=== PATIENT | male | born 1945 | race Caucasian/White ===

== ENCOUNTER 2021-03-26 20:48 | Inpatient (IN) | payer MEDICARE, SELFPAY ==
--- NOTE | ~2021-03-26 | XR_ITS ---
EXAMINATION: XR retrograde pyelogram RT INDICATION: Left-sided stone extraction and right-sided retrograde TECHNIQUE: 45 intraoperative fluoroscopic images are submitted for review. Total fluoroscopic time wa s 17.0 seconds. COMPARISON: None available FINDINGS: Fluoroscopic images demonstrate retrograde opacification of a normal caliber right ureter a nd renal collecting system. There appears to be a wire inserted into the left ureter. IMPRESSION: 1. Please refer to procedure note for full details. Reviewed, dictated and finalized at location A.
[2021-03-26 20:45] VITALS: BP 161/89; PULSE 94; RESP 20; TEMP 36.7; O2SAT 99
--- NOTE | 2021-03-26 21:16 | PM.IMHP ---
H&P: HPI History of Present Illness Date/Time: 03/26/21 21:16 this is a 75-year-old male patient who has had no prior history of any kidney stones. The patient went to [facility] with complaints of left flank pain that started yesterday. The patient tried several remedies to help resolve the pain. The patient felt like he is bloated and that he needed have a bowel movement so he tried and a mi and that did not give him any relief. The patient stated that the pain got worse when he tried to lay down to go to sleep last night. The patient got into the hot tub which gave him some relief while he was in the hot tub. The patient was given morphine and Toradol in the emergency room at [place] and he felt relief from that as well. He was given IV fluids. The CT scan at [facility] was read by radiologist as 7 mm left distal ureteral calculus with associated mild left hydronephrosis and hydroureter. Bilateral nonobstructing nephrolithiasis. Moderate prostatic enlargement. Urinary bladder wall thickening may be due to cystitis versus artifactual appearance related to incomplete luminal distention. Postoperative changes of esophageal pull-through. Lower lumbar degenerative disc disease and facet arthropathy. No evidence of bowel obstruction, acute appendicitis, or other acute process in the abdomien or pelvis. Patient's H&H was 15.5 and 48.1. BUN 18 creatinine 2.52. I was given report from Harriet Oneil in the emergency room at [place]. The boiler house supervisor at [facility] had notify Dr. nicole who agreed to consult on the patient. The patient is being admitted for observation status on the date of service of 03/26/2021. Chief Complaint: Left flank pain Review of Systems Review of Systems: All systems reviewed & are unremarkable except as noted in HPI and below Constitutional: Constitutional: Reports as per HPI and Reports no additional constitutional complaints Eyes: Eyes: Reports as per HPI and Reports no additional eye complaints ENT: Reports system reviewed and no additional complaints, except as documented and Reports Normal hearing present Cardiovascular: Cardiovascular: Reports no additional cardiovascular complaints Respiratory: Respiratory: Reports no additional respiratory complaints and Reports no additional respiratory complaints Gastrointestinal: Gastrointestinal: Reports as per HPI and Reports no additional gastrointestinal complaints Musculoskeletal: Musculoskeletal: Reports no additional musculoskeletal complaints Integumentary/Breasts: Skin/Breast: Reports system reviewed and no additional complaints, except as docu and Reports as per HPI Neurologic: Reports system reviewed and no additional complaints, except as documented, Reports as per HPI and Reports Normal hearing present Psychiatric: Psychiatric: Reports no additional psychiatric complaints and Reports as per HPI Endocrine: Endocrine: Reports no additional endocrine complaints Hematologic/Lymphatic: Hematologic/Lymphatic: Reports no additional hematologic/lymphatic complaints Allergic/Immunologic: Allergic/Immunologic: Reports no additional allergic/immunologic complaints [facility] Past Medical History Medical History (Updated 03/26/21 @ 21:41 by Pam Salinas NP) Asthma Coronary artery thrombosis With thrombectomy History of esophageal cancer With surgery, chemo and radiation. History of pulmonary embolism Hyperlipidemia Hypertension Surgical History Surgical History (Updated 03/26/21 @ 21:29 by Pam Salinas NP) H/O bilateral cataract extraction H/O hernia repair History of gastric surgery Esophageal pull-through History of lung surgery To remove esophageal cancer Family History Family History (Updated 03/26/21 @ 21:30 by Pma Salinas NP) Father Alcoholism Social History Social History (Updated 03/26/21 @ 21:34 by Pam Salinas NP) Social History: The patient is . H
--- NOTE | 2021-03-26 21:18 | ADMGEN ---
This patient, Dhruv Santiago, was admitted to [facility] Surg Room 302-01. Patient/family oriented to hospital policies and general routines including ID bracelet, bed and alarms, visiting hours, pain management, procedures, bathroom and other care routines, personal items, smoking policy, room service/diet, and visiting hours. Information on how to activate the Rapid Response Team has been discussed. Patient/Family are encouraged to report perceived risks to care and to ask questions if they do not understand what they are told or what they should do.
[2021-03-26 21:40] VITALS: BMI 27.3
[2021-03-26 22:00] VITALS: BP 139/84; PULSE 74; RESP 20; TEMP 36.2; O2SAT 99
[2021-03-26] MEDS: HYDROcodone/acetaminophen (*CRX) 5-325 MG TABLET 1 TAB PO (22:04)
[2021-03-26 22:05] LABS: Anion Gap 8 mmol/L (8-16); Blood Urea Nitrogen 19 mg/dL (9-20); Calcium 9.2 mg/dL (8.4-10.2); Carbon Dioxide 24 mmol/L (22-30); Chloride 110 mmol/L (98-107); Estimated CRCL calculation 19 ml/min; Estimated Glomerular Filt Rate 21; Glucose 110 mg/dL (75-110); Potassium 3.8 mmol/L (3.4-5.0); Sodium 142 mmol/L (137-145)
[2021-03-26] MEDS: DEXTROSE 5%/0.9% SOD CHL 1,000 ML 100 ML IV CONT (22:05)
[2021-03-27] VITALS (14 sets, daily range): BP systolic 135–176; BP diastolic 85–105; PULSE 67–108; RESP 16–20; TEMP 36.1–37; O2SAT 94–100
[2021-03-27] MEDS: HYDROcodone/acetaminophen (*CRX) 5-325 MG TABLET 1 TAB PO ×2 (03:16→09:10)
[2021-03-27 03:50] LABS: Add Urine Microscopic? YES; Appearance Urine Clear (Clear); Bilirubin Urine Negative (Negative); Blood Urine 2+ (Negative); Color Urine Yellow (Yellow); Glucose Urine UA Negative (Negative); Ketones Urine Trace mg/dL (Negative); Leukocyte Esterase Ur Negative LEU/UL (Negative); Mucus Urine Rare /lpf; Nitrate Urine Negative (Negative); Protein Urine 2+ mg/dL (Negative); Squamous Epithelial Cell Urine Rare /hpf (Few); Urobilinogen Urine Negative mg/dL (<2.0); WBC Urine 0-3 /hpf
[2021-03-27 04:18] LABS: Specific Grav Ur 1.032 (1.001-1.035)
[2021-03-27] MEDS: MORPHINE SULFATE (*CRX) 2 MG/ML INJ IV PUSH (06:19)
[2021-03-27 06:35] LABS: Basophils Absolute Auto 0.1 K/mm3 (0.0-0.1); Basophils Percent Auto 0.5 % (0.2-1.2); Eosinophils Absolute Auto 0.1 K/mm3 (0-0.3); Eosinophils Percent Auto 1.4 % (0-4.4); Hematocrit 42.4 % (42.0-52.0); Hemoglobin 13.3 g/dL (14.0-18.0); Immature Granulocyte Absolute 0.03 K/mm3 (0.00-0.031); Immature Granulocyte Percent A 0.3 % (0-0.5); Lymphocytes Absolute Auto 1.11 K/mm3 (0.9-3.2); Lymphocytes Percent Auto 11.6 % (18.3-44.2); Mean Corpuscular HGB Conc 31.4 g/dl (32-36); Mean Corpuscular Hemoglobin 28.3 pg (26-34); Mean Corpuscular Volume 90.2 fl (80-100); Mean Platelet Volume 10.6 fl (7.4-10.4); Monocytes Absolute Auto 1.2 K/mm3 (0.1-0.6); Monocytes Percent Auto 12.2 % (2.6-8.5); Neutrophils Absolute Auto 7.1 K/mm3 (1.3-6.7); Platelet Count Result 204 k/mm3 (150-375); Red Cell Distribution Width 16.8 % (11.5-14.5); White Blood Count 9.6 K/mm3 (4.5-10.0)
[2021-03-27] MEDS: MORPHINE SULFATE (*CRX) 4 MG/ML INJ IV PUSH (06:53)
[2021-03-27] MEDS: DEXTROSE 5%/0.9% SOD CHL 1,000 ML 100 ML IV CONT (08:17)
--- NOTE | 2021-03-27 10:00 | WPDURCON ---
Assessment and Plan Assessment and plan (1) Left ureteral stone: Code(s): N20.1 - Calculus of ureter Status: Acute Assessment and Plan: Cystoscopy, left ureteroscopy with possible laser lithotripsy, stone extraction and possible stent placement. Urology Consult Note HPI Date Seen: 03/27/21 Requesting Physician: Enrico Brian MD Primary Care Provider: Angelo Schulz, MD Consult Narrative Narrative: Dhruv Santiago is a 75 year old male without prior significant urological history in without history of urolithiasis. He presented to the emergency department [facility] with a 36 hour history of intermittent, increasingly severe left flank pain radiated to his left lower quadrant. This was associated with nausea vomiting but no fevers chills or gross hematuria. Imaging there revealed a 7 mm partially obstructing left distal ureteral calculus. Review of Systems Cardiovascular: Cardiovascular: Denies chest pain, Denies lightheadedness, Denies palpitations and Denies dyspnea Respiratory: Respiratory: Denies dyspnea Gastrointestinal: Gastrointestinal: Reports abdominal pain, Denies diarrhea, Reports nausea and Reports vomiting Genitourinary: Genitourinary: Denies hematuria and Denies dysuria Endocrine: Endocrine: Denies palpitations PMFSH Past Medical History Medical History Asthma Coronary artery thrombosis With thrombectomy History of esophageal cancer With surgery, chemo and radiation. History of pulmonary embolism Hyperlipidemia Hypertension Surgical History Surgical History H/O bilateral cataract extraction H/O hernia repair History of gastric surgery Esophageal pull-through History of lung surgery To remove esophageal cancer Family History Family History Father Alcoholism Social History Social History Social History: The patient is . He has 2 children. Both of the sons are durable power district attorney for healthcare. Patient is a full code. The patient smoked for brief period time when he was younger. He no longer smokes. Social drinker. No marijuana or illicit drugs. The patient is retired from [employer]. Smoking status: Former smoker Smoking end date: 11/07/1959 Gender identity (if verbalized by the patient): Male Spiritual care concerns: No Meds Home Medications and Allergies Home Medications Medication Instructions Recorded Confirmed Type apixaban [Eliquis] 5 mg PO BID 03/27/21 03/27/21 History fluticasone propionate [Flovent 220 mcg INHALATION Q4H PRN 03/27/21 03/27/21 History HFA] lisinopril 20 mg PO DAILY 03/27/21 03/27/21 History salmeterol [Serevent Diskus] 50 mcg INHALATION Q4H PRN 03/27/21 03/27/21 History simvastatin 800 mg PO HS 03/27/21 03/27/21 History Allergies Allergy/AdvReac Type Severity Reaction Status Date / Time adhesive Allergy Intermediate Rash Verified 03/24/15 07:44 Vital Signs Vital Signs - 24 hr 03/26/21 20:45 03/26/21 22:00 03/27/21 00:00 Temperature 98.0 F 97.1 F L Pulse Rate 94 74 72 Respiratory Rate 20 20 Blood Pressure 161/89 H 139/84 Pulse Oximetry 99 99 03/27/21 04:00 03/27/21 06:00 03/27/21 08:00 Temperature 97.0 F L Pulse Rate 67 77 81 Respiratory Rate 20 Blood Pressure 135/87 Pulse Oximetry 99 Exam Const: General: no acute distress Resp: Effort & Inspection: normal respiratory effort GI: Inspection: non-distended GI Palp: No abdominal tenderness and No Guarding due to palpation present (GI) Auscultation: normal bowel sounds Results Labs CBC & Chem 7: 03/27/21 05:47 03/26/21 21:45 Labs: Short CBC 03/27/21 Range/Units 05:47 WBC 9.6 (4.5-10.0) K/mm3 Hgb 13.3 L (14.0-18.0) g/dL Hct
[2021-03-27] MEDS: KETOROLAC 15 MG/ML VIAL (*BKC) IV PUSH (12:04)
--- NOTE | 2021-03-27 13:42 | WPDANESEPPF ---
Anes - Initial Pre Proc Eval Procedure: Operation Date: 03/27/21 15:30 Proposed Procedures p Cystoscopy,Left Ureteroscopy,Left Retrograde Pyelogram,Left Stone Extraction,Possible Holmium Laser,Possible Left Stent Placement - Kan Bauman MD Date/Time: 03/27/21 13:42 Surgeon: Enrico Brian MD Pre Op Diagnosis: Obstructive Uropathy Patient Data Age: 75 Gender: M Height: 1.73 m Weight: 81.4 kg Last Vital Signs Temp 36.1 C L 03/27/21 06:00 Pulse 89 03/27/21 12:00 Resp 20 03/27/21 06:00 BP 135/87 03/27/21 06:00 Pulse Ox 99 03/27/21 06:00 Allergies Allergy/AdvReac Type Severity Reaction Status Date / Time adhesive Allergy Intermediate Rash Verified 03/24/15 07:44 Home Medications Medication Instructions Recorded Confirmed Type apixaban [Eliquis] 5 mg PO BID 03/27/21 03/27/21 History fluticasone propionate [Flovent 220 mcg INHALATION Q4H PRN 03/27/21 03/27/21 History HFA] lisinopril 20 mg PO DAILY 03/27/21 03/27/21 History salmeterol [Serevent Diskus] 50 mcg INHALATION Q4H PRN 03/27/21 03/27/21 History simvastatin 800 mg PO HS 03/27/21 03/27/21 History Laboratory Tests 03/26/21 03/27/21 03/27/21 21:45 03:17 05:47 WBC 9.6 K/mm3 K/mm3 (4.5-10.0) RBC 4.70 M/mm3 M/mm3 (4.6-6.20) Hgb 13.3 g/dL L g/dL (14.0-18.0) Hct 42.4 % % (42.0-52.0) MCV 90.2 fl fl (80-100) MCH 28.3 pg pg (26-34) MCHC 31.4 g/dl L g/dl (32-36) RDW 16.8 % H % (11.5-14.5) Plt Count 204 k/mm3 k/mm3 (150-375) MPV 10.6 fl H fl (7.4-10.4) Immature Gran % (Auto) 0.3 % % (0-0.5) Neut % (Auto) 74.0 % H % (45.5-73.1) Lymph % (Auto) 11.6 % L % (18.3-44.2) [place] % (Auto) 12.2 % H % (2.6-8.5) Eos % (Auto) 1.4 % % (0-4.4) Baso % (Auto) 0.5 % % (0.2-1.2) Lymph # (Auto) 1.11 K/mm3 K/mm3 (0.9-3.2) [place] # (Auto) 1.2 K/mm3 H K/mm3 (0.1-0.6) Eos # (Auto) 0.1 K/mm3 K/mm3 (0-0.3) Baso # (Auto) 0.1 K/mm3 K/mm3 (0.0-0.1) Abs Immat Gran (auto) 0.03 K/mm3 K/mm3 (0.00-0.031) Absolute Neuts (auto) 7.1 K/mm3 H K/mm3 (1.3-6.7) Absolute Nucleated RBC 0.0 K/mm3 K/mm3 (0.0-0.012) Nucleated RBC % 0.0 % % (0.0-0.2) Sodium 142 mmol/L mmol/L (137-145) Potassium 3.8 mmol/L mmol/L (3.4-5.0) Chloride 110 mmol/L H mmol/L (98-107) Carbon Dioxide 24 mmol/L mmol/L (22-30) Anion Gap 8 mmol/L mmol/L (8-16) BUN 19 mg/dL mg/dL (9-20) Creatinine 3.00 mg/dL H mg/dL (0.7-1.3) Estim Creat Clear Calc 19 ml/min ml/min Estimated GFR 21 L (59 - ) Glucose 110 mg/dL mg/dL (75-110) Calcium 9.2 mg/dL mg/dL (8.4-10.2) Urine Color Yellow (Yellow) Urine Appearance Clear (Clear) Urine pH 5.0 (5.0-9.0) Ur Specific [place] 1.032 (1.001-1.035) Urine Protein 2+ mg/dL H mg/dL (Negative) Urine Glucose (UA) Negative mg/dL mg/dL (Negative) Urine Ketones Trace mg/dL mg/dL (Negative) Ur Blood (Man) 2+ H (Negative) Urine Nitrate Negative (Negative) Urine Bilirubin Negative (Negative) Urine Urobilinogen Negative mg/dL mg/dL (<2.0) Leukocyte Esterase Rfl Negative KANDACE/UL KANDACE/UL (Negative) Urine RBC 3-5 /hpf H /hpf (0-2) Urine WBC 0-3 /hpf /hpf Ur Squamous Epith Cells Rare /hpf /hpf (Few) Urine Mucus Rare /lpf /lpf Patient hx anesthesia problems: none Family hx anesthesia problems: none PMFSH Past Medical History Medical History Asthma Coronary artery thrombosis With thrombectomy History of esophageal cancer With surge
--- NOTE | 2021-03-27 14:35 | PC.NURSE ---
To OR per wheelchair @ 1555, IV #20 RT AC.
--- NOTE | 2021-03-27 14:55 | PM.IMPN ---
Progress Note: A&P Assessment and Plan (1) Nephrolithiasis: Code(s): N20.0 - Calculus of kidney Status: Acute Assessment and Plan: Urology has been consulted. s/op cystoscopy and stone extraction (2) Obstructed, uropathy: Code(s): N13.9 - Obstructive and reflux uropathy, unspecified Status: Acute Assessment and Plan: Continue with IV fluids. Urology has been consulted. will monitor renal function (3) Hyperlipidemia: Code(s): E78.5 - Hyperlipidemia, unspecified Status: Chronic Assessment and Plan: Continue with home medication (4) UTI (urinary tract infection): Code(s): N39.0 - Urinary tract infection, site not specified Status: Acute Assessment and Plan: Urine and blood cultures are pending. Continue with Rocephin. (5) Acute kidney injury: Code(s): N17.9 - Acute kidney failure, unspecified Status: Acute Assessment and Plan: Continue with IV fluids. Most likely due to the nephrolithiasis and the obstructive uropathy. The patient's creatinine is 2 .52. will rehcekc her creatinine to ensure resolutin. (6) Hypertension: Code(s): I10 - Essential (primary) hypertension Status: Chronic Assessment and Plan: Hold lisinopril for now will do p.r.n. hydralazine. lisinopril will be hled until renal function recovers (7) Asthma: Code(s): J45.909 - Unspecified asthma, uncomplicated Status: Chronic Assessment and Plan: Continue with inhalers. (8) History of pulmonary embolism: Code(s): Z86.711 - Personal history of pulmonary embolism Status: Chronic Assessment and Plan: resume eliquis (9) Left ureteral stone: Code(s): N20.1 - Calculus of ureter Status: Acute Subjective Date/time seen: 03/27/21 14:55 seen in postop recovery. he is feeling much beter. the pain has resolved. he denies any fever, chlls, sob, chest pain, abdominal pain. Review of Systems Review of Systems: Narrative: - CONSTITUTIONAL: Denies weight loss, fever and chills. - HEENT: Denies changes in vision and hearing - RESPIRATORY: Denies SOB and cough. - CV: Denies palpitations and CP. - GI: reports abdominal pain, denies nausea, vomiting and diarrhea. - : Denies dysuria and urinary frequency. - MSK: Denies myalgia and joint pain. - SKIN: Denies rash and pruritus. - NEUROLOGICAL: Denies headache and syncope. - PSYCHIATRIC: Denies recent changes in mood. Denies anxiety and depression. All systems reviewed & are unremarkable except as noted in HPI and below Exam Narrative: Exam Narrative: GENERAL: The patient is well developed, not in acute distress HEENT: Nonicteric sclerae, PERRLA, EOMI. Oropharynx clear. Moist mucous membranes. Conjunctivae appear well perfused. CHEST: Chest wall is nontender. HEART: Regular rate and rhythm without murmur, rubs, or gallops LUNGS: Clear to auscultation bilaterally. no respiratory distress ABDOMEN: Soft, positive bowel sounds, non-tender, no organomegaly. SKIN: No rash, no excessive bruising, petechiae, or purpura. NEUROLOGIC: Cranial nerves II-XII intact, alert and oriented x 3, no gross motor deficits EXTREMITIES: no edema, cyanosis or clubbing Objective Data Vital Signs Vital Signs: Vital Signs - 24 hr 03/26/21 20:45 03/26/21 22:00 03/27/21 00:00 Temperature 98.0 F 97.1 F L Pulse Rate 94 74 72 Respiratory Rate 20 20 Blood Pressure 161/89 H 139/84 Pulse Oximetry 99 99 03/27/21 04:00 03/27/21 06:00 03/27/21 08:00 Temperature 97.0 F L Pulse Rate 67 77 81 Respiratory Rate 20 Blood Pressure 135/87 Pulse Oximetry 99 03/27/21 12:00 Temperature Pulse Rate 89 Respiratory Rate Blood Pressure Pulse Oximetry Intake/Output Intake/Output: Intake & Output 03/24/21 03/25/21 03/26/21 03/27/21 23:59 23:59 23:59 23:59 Intake Total 50 1400 Output Total 300 Balance 50 1100 Meds/Results Medicat
--- NOTE | 2021-03-27 15:04 | SUR.PREOP ---
dr brown aware of bp 157/105.
[2021-03-27] MEDS: LACTATED RINGERS 1,000 ML 30 ML IV CONT (15:07)
--- NOTE | 2021-03-27 16:01 | PC.NURSE ---
Tam Santiago (son) [phone]
--- NOTE | 2021-03-27 16:12 | WPDHPUPDATE1 ---
History and Physical Update Update Date/Time: 03/27/21 16:12 History and Physical has been reviewed, including an updated exam of the patient. There are NO changes in the patient's condition. Risks, benefits, and alternatives have been discussed and questions answered. Patient agrees to proceed with procedure.
[2021-03-27] MEDS: LIDOCAINE HCL 2% GEL UROJET 10 ML PKG MUCOUS MEM (17:12)
--- NOTE | 2021-03-27 17:26 | P.OP_ITS ---
Procedure Note - Detailed Date of procedure: 03/27/21 Pre-op diagnosis: Left distal ureteral calculus Post-op diagnosis: same Procedure performed: Cystoscopy, left ureteroscopy with stone extraction, right retrograde pyelography Description of procedure: The patient was brought to the operative suite where he is prepped and draped in a routine sterile fashion while in the dorsal lithotomy position after the uneventful induction of a general LMA anesthetic. A 19F rigid cystoscope was placed in the bladder. There are no urethral strictures. His prostatic urethra measures, approximately, 2.0cm with small median lobe enlargement. The bladder mucosa was endoscopically normal without hyperemia or neoplasm. There was a single, orthotopic ureteral orifice bilaterally. A 0.035 glidewire was advanced into the renal pelvis under fluoro scopy. The distal ureter was dilated with an 8F/10F ureteral dilator. Ureteroscopy was undertaken with a short, tapered, semi-rigid ureteroscope and the stone was extracted with ease using a 1.9F Escape disposable stone basket. Due to the ease of this manipulation I opted not to place a ureteral stent. patient was transferred from another hospital where, reportedly, he was given a verbal report that he had a right ureteral stone. On his intraoperative fluoroscopy there were some calcifications in his right hemipelvis so I opted to do a right retrograde pyelogram. This was done with the rigid ureteral scope position to the right ureteral orifice. There are no stones in his right ureter that her identifiable. These calcifications are well outside the ureter. There are no filling defects, points of obstruction or other identifiable pathology in the right ureter collecting system. The patient's bladder was emptied and was taken to the recovery room having tolerated this procedure well. Anesthesia: GLMA Surgeon: Kan Bauman MD Estimated blood loss (mL): 0 Drains: No Packing: No Pathology: yes Complications: No immediate complications Condition: stable Disposition: PACU
--- NOTE | 2021-03-27 17:39 | SUR.PHASEI ---
1728; PT INTO PACU PER STRETCHER. AWAKE AND ALERT. COUGHING, HACKING. PT ASKED TO SIT UPRIGHT. DENIES PAIN. PT HAS AUDIBLE EXP WHEEZES. DR MARTINEZ AT BEDSIDE. 1735; ORDERING ALBUTEROL TREATMENT. RESP THERAPIST NOTIFIED.
[2021-03-27] MEDS: ALBUTEROL SULFATE NEB 2.5 MG/3 ML INH INHALATION (17:45)
--- NOTE | 2021-03-27 17:46 | SUR.PHASEI ---
PT GETTING ALBUTEROL TREATMENT
--- NOTE | 2021-03-27 17:54 | SUR.PHASEI ---
BP 180/110. HR 90'S NSR. DR MARTINEZ NOTIFIED. PT STATES HE HASNT HAD HIS LISINOPRIL IN 2 DAYS. LABETOLOL 5MG IV ORDERED
[2021-03-27] MEDS: LABETALOL HCL INJ 100 MG/20 ML VIAL IV PUSH (17:57)
--- NOTE | 2021-03-27 18:17 | SUR.PHASEI ---
PT AWAKE AND ALERT. BP IMPROVED. 150'S/90'S. HR 83. HOSPITALIST AT BEDSIDE. REPORT FAXED TO FLOOR
--- NOTE | 2021-03-27 18:28 | SUR.PHASEI ---
DR MARTINEZ NOTIFIED OF BP 150'S/90'S
[2021-03-27 20:17] LABS: Anion Gap 5 mmol/L (8-16); Blood Urea Nitrogen 20 mg/dL (9-20); Calcium 8.3 mg/dL (8.4-10.2); Carbon Dioxide 25 mmol/L (22-30); Chloride 110 mmol/L (98-107); Estimated CRCL calculation 20 ml/min; Estimated Glomerular Filt Rate 21; Glucose 117 mg/dL (75-110); Potassium 3.3 mmol/L (3.4-5.0); Sodium 140 mmol/L (137-145)
[2021-03-27] MEDS: MELATONIN 3 MG TABLET PO (21:40)
[2021-03-27] MEDS: APIXABAN 5 MG TABLET PO (21:40)
[2021-03-28] MEDS: SIMVASTATIN 20 MG TABLET 80 MG PO ×2 (00:04→20:41)
[2021-03-28 06:00] VITALS: BP 161/95; PULSE 96; RESP 20; TEMP 37.3; O2SAT 97
[2021-03-28] MEDS: HYDROcodone/acetaminophen (*CRX) 5-325 MG TABLET 1 TAB PO (06:18)
[2021-03-28 08:00] VITALS: PULSE 96; RESP 20; O2SAT 97
[2021-03-28 08:04] LABS: Basophils Absolute Auto 0.1 K/mm3 (0.0-0.1); Basophils Percent Auto 0.6 % (0.2-1.2); Eosinophils Absolute Auto 0.1 K/mm3 (0-0.3); Eosinophils Percent Auto 0.5 % (0-4.4); Hemoglobin 13.8 g/dL (14.0-18.0); Immature Granulocyte Absolute 0.04 K/mm3 (0.00-0.031); Immature Granulocyte Percent A 0.3 % (0-0.5); Lymphocytes Absolute Auto 0.92 K/mm3 (0.9-3.2); Lymphocytes Percent Auto 7.8 % (18.3-44.2); Mean Corpuscular HGB Conc 31.4 g/dl (32-36); Mean Corpuscular Hemoglobin 27.8 pg (26-34); Mean Corpuscular Volume 88.7 fl (80-100); Mean Platelet Volume 10.7 fl (7.4-10.4); Monocytes Absolute Auto 1.5 K/mm3 (0.1-0.6); Monocytes Percent Auto 12.5 % (2.6-8.5); Neutrophils Absolute Auto 9.2 K/mm3 (1.3-6.7); Neutrophils Percent Auto 78.3 % (45.5-73.1); Platelet Count Result 199 k/mm3 (150-375); Red Blood Count 4.96 M/mm3 (4.6-6.20); Red Cell Distribution Width 16.8 % (11.5-14.5); White Blood Count 11.8 K/mm3 (4.5-10.0)
[2021-03-28 08:21] LABS: Anion Gap 5 mmol/L (8-16); Blood Urea Nitrogen 20 mg/dL (9-20); Calcium 8.2 mg/dL (8.4-10.2); Carbon Dioxide 23 mmol/L (22-30); Chloride 108 mmol/L (98-107); Estimated CRCL calculation 19 ml/min; Estimated Glomerular Filt Rate 20; Glucose 109 mg/dL (75-110); Potassium 3.4 mmol/L (3.4-5.0); Sodium 136 mmol/L (137-145)
[2021-03-28] MEDS: APIXABAN 5 MG TABLET PO ×2 (08:42→17:30)
--- NOTE | 2021-03-28 10:41 | PM.IMPN ---
Progress Note: A&P Assessment and Plan (1) Nephrolithiasis: Code(s): N20.0 - Calculus of kidney Status: Acute Assessment and Plan: Urology has been consulted. s/op cystoscopy and stone extraction Continue with IV fluid (2) Obstructed, uropathy: Code(s): N13.9 - Obstructive and reflux uropathy, unspecified Status: Acute Assessment and Plan: Continue with IV fluids. Urology has been consulted. will monitor renal function Monitor creatinine. (3) Hyperlipidemia: Code(s): E78.5 - Hyperlipidemia, unspecified Status: Chronic Assessment and Plan: Continue with home medication (4) UTI (urinary tract infection): Code(s): N39.0 - Urinary tract infection, site not specified Status: Acute Assessment and Plan: Urine and blood cultures are pending. Continue with Rocephin. (5) Acute kidney injury: Code(s): N17.9 - Acute kidney failure, unspecified Status: Acute Assessment and Plan: Continue with IV fluids. Most likely due to the nephrolithiasis and the obstructive uropathy. The patient's creatinine is 2 .52. will rehcekc her creatinine to ensure resolutin. (6) Hypertension: Code(s): I10 - Essential (primary) hypertension Status: Chronic Assessment and Plan: Hold lisinopril for now will do p.r.n. hydralazine. lisinopril will be hled until renal function recovers (7) Asthma: Code(s): J45.909 - Unspecified asthma, uncomplicated Status: Chronic Assessment and Plan: Continue with inhalers. (8) History of pulmonary embolism: Code(s): Z86.711 - Personal history of pulmonary embolism Status: Chronic Assessment and Plan: resume eliquis Additional Plan This is a 75-year-old male patient who has had no prior history of any kidney stones. The patient went to [facility] with complaints of left flank pain that started yesterday. The patient tried several remedies to help resolve the pain. The patient felt like he is bloated and that he needed have a bowel movement so he tried and a mi and that did not give him any relief. The patient stated that the pain got worse when he tried to lay down to go to sleep last night. The patient got into the hot tub which gave him some relief while he was in the hot tub. The patient was given morphine and Toradol in the emergency room at [facility] and he felt relief from that as well. He was given IV fluids. The CT scan at [facility] was read by radiologist as 7 mm left distal ureteral calculus with associated mild left hydronephrosis and hydroureter. Bilateral nonobstructing nephrolithiasis. Moderate prostatic enlargement. Urinary bladder wall thickening may be due to cystitis versus artifactual appearance related to incomplete luminal distention. Postoperative changes of esophageal pull-through. Lower lumbar degenerative disc disease and facet arthropathy. No evidence of bowel obstruction, acute appendicitis, or other acute process in the abdomien or pelvis. Patient's H&H was 15.5 and 48.1. BUN 18 creatinine 2.52. I was given report from Harriet Oneil in the emergency room at [facility]. The warehouse distribution manager at [facility] had notify Dr. nicole who agreed to consult on the patient. The patient is being admitted for observation status on the date of service of 03/26/2021. 03/28:-will continue with current plan of care and treatment. Case was discussed with Urology. Will repeat creatinine in the morning and continue with antibiotics and IV fluid present. Subjective Date/time seen: 03/28/21 10:41 Patient was seen during the morning rounds today. Status post stone removal. Feeling much better. No shortness of breath or chest pain. No abdominal pain, no nausea, no vomiting. Mood stable. Review of Systems Review of Systems: All systems reviewed & are unremarkable except as noted in HPI and below Constitutional:
--- NOTE | 2021-03-28 10:53 | WPDUROPN2 ---
Progress Note: A&P Assessment and Plan (1) Left ureteral stone: Code(s): N20.1 - Calculus of ureter Status: Acute Assessment and Plan: s/p URS stone analysis pending (2) Acute kidney injury: Code(s): N17.9 - Acute kidney failure, unspecified Status: Acute Assessment and Plan: Cr 3.0 unknown baseline pt state he has kidney disease trend serial Cr and i/O Subjective Subjective Date/Time Seen: 03/28/21 10:53 Doing well, NAOE. no clots, no pain. No fevers/chills/or voiding complaints. Exam Const: General: cooperative, healthy appearing and comfortable HENMT: Head: normocephalic and atraumatic Resp: Effort & Inspection: normal respiratory effort and able to speak in complete sentences Cardio: Rate: regular rate Rhythm: regular rhythm : General: Yes no CVA tenderness Skin: General skin exam: normal color Neuro: General: oriented to person, oriented to place and oriented to time Extrem: General: normal to inspection, full ROM and capillary refill normal Objective Data Vital Signs Vital Signs: Vital Signs - 24 hr 03/27/21 12:00 03/27/21 14:00 03/27/21 14:40 Temperature 36.4 C 37.0 C Pulse Rate 89 86 108 H Respiratory Rate 16 16 Blood Pressure 137/85 165/105 H Pulse Oximetry 98 97 03/27/21 17:28 03/27/21 17:45 03/27/21 17:55 Temperature 36.3 C L Pulse Rate 96 91 93 Respiratory Rate 16 20 20 Blood Pressure 176/103 H 171/100 H Pulse Oximetry 95 100 03/27/21 17:57 03/27/21 18:00 03/27/21 18:16 Temperature Pulse Rate 96 84 82 Respiratory Rate 18 20 Blood Pressure 170/90 H 153/96 H Pulse Oximetry 95 94 03/27/21 22:00 03/28/21 06:00 Temperature 36.6 C 37.3 C Pulse Rate 98 96 Respiratory Rate 16 20 Blood Pressure 155/90 H 161/95 H Pulse Oximetry 96 97 Intake/Output Intake/Output: Intake & Output 03/25/21 03/26/21 03/27/21 03/28/21 23:59 23:59 23:59 23:59 Intake Total 50 4650 820 Output Total 300 400 Balance 50 4350 420 Meds/Results Medications: Active Medications Generic Name Dose Route Start Last Admin Trade Name Freq PRN Reason Stop Dose Admin Hydrocodone Bitart/Acetaminophen 1 tab 03/26/21 21:20 03/28/21 06:18 Hydrocodone/Acetaminophen (*Crx) 5-325 Mg Tablet PO 1 tab Q4H PRN Administration Pain Rated 4-6 Apixaban 5 mg 03/27/21 19:20 03/28/21 08:42 Apixaban 5 Mg Tablet PO 5 mg BID FABBY Administration Fentanyl Citrate 25 mcg 03/27/21 17:33 Fentanyl Citrate Inj (*Crx) 100 Mcg/2 Ml Vial IV PUSH Q2M PRN Pain Fluticasone Propionate 2 puff 03/27/21 14:57 Fluticasone Prop 220 Mcg (*Sp) 12 Gm Inhaler INHALATION DAILY PRN Shortness Of Breath Hydralazine HCl 10 mg 03/26/21 21:43 Hydralazine Hcl 20 Mg/Ml Vial IV PUSH Q8H PRN Blood Pressure - High Dextrose/Sodium Chloride 1,000 mls @ 100 mls/hr 03/26/21 21:10 03/28/21 06:12 Dextrose 5% Sodium Chloride 0.9% IV CONT Not Given .Q10H FABBY Ceftriaxone Sodium/Dextrose 1 gm in 50 mls @ 100 mls/hr 03/26/21 22:00 03/27/21 22:32 Rocephin 1 Gm/D5w 50 Ml IVPB Infused Q24H FABBY Infusion Lactated Ringer's 1,000 mls @ 30 mls/hr 03/27/21 13:45 03/27/21 18:13 Lr - Lactated Ringers Iv IV CONT Infused .Q24H FABBY Infusion Lactated Ringer's 1,000 mls @ 30 mls/hr 03/27/21 13:45 03/27/21 21:36 Lr - Lactated Ringers Iv IV CONT Not Given .Q24H FABBY Melatonin 3 mg 03/27/21 21:17 03/27/21 21:40 Melatonin 3 Mg Tablet PO 3 mg HS PRN Administration Sleep Morphine Sulfate 4 mg 03/27/21 06:46 03/27/21 06:53 Morphine Sulfate (*Crx) 4 Mg/Ml Inj IV PUSH 4 mg Q4H PRN Administration Pain Rated 7-10 Ondansetron HCl 4 mg 03/26/21 21:10 Ondansetron Inj 4 Mg/2 Ml Vial IV PUSH Q6H PRN Nausea And Vomiting Ondansetron HCl 4 mg 03/27/21 13:42 Ondansetron Inj 4 Mg/2 Ml Vial IV PUSH ONCE PRN Nausea Ondansetron HCl 4 mg 0
--- NOTE | 2021-03-28 12:23 | WPDANESPN ---
Anes - Prog Note Post-Op Date/Time: 03/28/21 12:23 Cardiovascular status: normal Respiratory status: normal Airway patency: baseline Mental status: baseline Post-Op hydration status: normal Vital Signs: Last Vital Signs Temp 37.3 C 03/28/21 06:00 Pulse 96 03/28/21 08:00 Resp 20 03/28/21 08:00 BP 161/95 H 03/28/21 06:00 Pulse Ox 97 03/28/21 08:00 Pain Score (VAS): 0 I/O: Intake & Output 03/27/21 03/28/21 03/28/21 23:59 07:59 15:59 Intake Total 3250 500 320 Output Total 400 Balance 3250 100 320 Laboratory Tests 03/28/21 07:10 03/28/21 07:10 03/27/21 03/28/21 03/28/21 19:47 07:10 07:10 WBC 11.8 H RBC 4.96 Hgb 13.8 L Hct 44.0 MCV 88.7 MCH 27.8 MCHC 31.4 L RDW 16.8 H Plt Count 199 MPV 10.7 H Immature Gran % (Auto) 0.3 Neut % (Auto) 78.3 H Lymph % (Auto) 7.8 L [place] % (Auto) 12.5 H Eos % (Auto) 0.5 Baso % (Auto) 0.6 Lymph # (Auto) 0.92 [place] # (Auto) 1.5 H Eos # (Auto) 0.1 Baso # (Auto) 0.1 Abs Immat Gran (auto) 0.04 H Absolute Neuts (auto) 9.2 H Absolute Nucleated RBC 0.0 Nucleated RBC % 0.0 Sodium 140 136 L Potassium 3.3 L 3.4 Chloride 110 H 108 H Carbon Dioxide 25 23 Anion Gap 5 L 5 L BUN 20 20 Creatinine 2.90 H 3.10 H Estim Creat Clear Calc 20 19 Estimated GFR 21 L 20 L Glucose 117 H 109 Calcium 8.3 L 8.2 L Microbiology 03/26/21 21:45 Blood Blood Culture - Preliminary 03/26/21 21:45 Blood Blood Culture - Preliminary Post-procedural complaints: none Patient Feedback: Patient satisfied with anesthetic care.
[2021-03-28 14:00] VITALS: BP 150/92; PULSE 97; RESP 16; TEMP 37.6; O2SAT 97
[2021-03-28] MEDS: DOCUSATE SODIUM 100 MG CAPSULE PO (17:29)
[2021-03-28] MEDS: SIMETHICONE 80 MG TAB.CHEW PO (20:42)
[2021-03-28] MEDS: ACETAMINOPHEN 325 MG TABLET 650 MG PO (20:42)
[2021-03-28] MEDS: MELATONIN 3 MG TABLET PO (21:39)
[2021-03-28] MEDS: polyethylene glycoL 3350 17 GM POWD.PACK PO (21:39)
[2021-03-28 22:06] VITALS: BP 154/97; PULSE 91; RESP 16; TEMP 37.2; O2SAT 96
[2021-03-28] MEDS: DEXTROSE 5%/0.9% SOD CHL 1,000 ML 100 ML IV CONT (22:07)
[2021-03-29] MEDS: DEXTROSE 5%/0.9% SOD CHL 1,000 ML 100 ML IV CONT (02:44)
[2021-03-29 06:00] VITALS: BP 154/90; PULSE 76; RESP 16; TEMP 36.6; O2SAT 99
[2021-03-29 06:19] LABS: Hematocrit 40.7 % (42.0-52.0); Hemoglobin 12.8 g/dL (14.0-18.0); Mean Corpuscular HGB Conc 31.4 g/dl (32-36); Mean Corpuscular Hemoglobin 27.8 pg (26-34); Mean Corpuscular Volume 88.5 fl (80-100); Mean Platelet Volume 10.7 fl (7.4-10.4); Platelet Count Result 165 k/mm3 (150-375); Red Cell Distribution Width 16.3 % (11.5-14.5); White Blood Count 7.3 K/mm3 (4.5-10.0)
[2021-03-29] MEDS: ACETAMINOPHEN 325 MG TABLET 650 MG PO ×2 (06:32→10:23)
[2021-03-29 06:37] LABS: Anion Gap 3 mmol/L (8-16); Blood Urea Nitrogen 18 mg/dL (9-20); Carbon Dioxide 26 mmol/L (22-30); Chloride 109 mmol/L (98-107); Estimated CRCL calculation 23 ml/min; Estimated Glomerular Filt Rate 25; Glucose 109 mg/dL (75-110); Potassium 3.3 mmol/L (3.4-5.0); Sodium 138 mmol/L (137-145)
[2021-03-29] MEDS: APIXABAN 5 MG TABLET PO (08:22)
[2021-03-29] MEDS: DOCUSATE SODIUM 100 MG CAPSULE PO (08:22)
--- NOTE | 2021-03-29 09:46 | WPDUROPN2 ---
Progress Note: A&P Assessment and Plan (1) Left ureteral stone: Code(s): N20.1 - Calculus of ureter Status: Acute Assessment and Plan: s/p ureteroscopy stone analysi spending ok to dc with followup with Dr Bauman pt will need outpt renal U/S and kub in few weeks (2) Nephrolithiasis: Code(s): N20.0 - Calculus of kidney Status: Acute (3) Acute kidney injury: Code(s): N17.9 - Acute kidney failure, unspecified Status: Acute Assessment and Plan: Cr improved. f/u with PCP Subjective Subjective Date/Time Seen: 03/29/21 09:46 feeling better, no gross hematuria or dysuria. no abdominal pain or back pain. urine clearing, wants to go home Review of Systems Review of Systems: All systems reviewed & are unremarkable except as noted in HPI and below Exam Const: General: cooperative, healthy appearing, comfortable and no acute distress HENMT: Head: normal to inspection, normocephalic and atraumatic Ears: hearing grossly normal bilaterally Eyes: General: appearance normal, both eyes and all related structures Chest: Chest palpation & inspection: normal inspection of the chest Resp: Effort & Inspection: normal respiratory effort, able to speak in complete sentences and no audible wheezes GI: Inspection: normal to inspection GI Palp: No abdominal tenderness : General: Yes no CVA tenderness Skin: General skin exam: normal color and no rashes or lesions noted Neuro: General: oriented to person, oriented to place, oriented to time and patient oriented x3 Extrem: General: normal to inspection, no clubbing, cyanosis or edema and no calf tenderness Objective Data Vital Signs Vital Signs: Vital Signs - 24 hr 03/28/21 14:00 03/28/21 22:06 03/29/21 06:00 Temperature 37.6 C 37.2 C 36.6 C Pulse Rate 97 91 76 Respiratory Rate 16 16 16 Blood Pressure 150/92 H 154/97 H 154/90 H Pulse Oximetry 97 96 99 Intake/Output Intake/Output: Intake & Output 03/26/21 03/27/21 03/28/21 03/29/21 23:59 23:59 23:59 23:59 Intake Total 50 4650 3040 1450 Output Total 378 917 1435 Balance 50 4350 2065 0 Meds/Results Medications: Active Medications Generic Name Dose Route Start Last Admin Trade Name Freq PRN Reason Stop Dose Admin Acetaminophen 650 mg 03/28/21 20:02 03/29/21 06:32 Acetaminophen 325 Mg Tablet PO 650 mg Q4H PRN Administration Mild Pain (1-3) or Fever Hydrocodone Bitart/Acetaminophen 1 tab 03/26/21 21:20 03/28/21 06:18 Hydrocodone/Acetaminophen (*Crx) 5-325 Mg Tablet PO 1 tab Q4H PRN Administration Pain Rated 4-6 Apixaban 5 mg 03/27/21 19:20 03/29/21 08:22 Apixaban 5 Mg Tablet PO 5 mg BID FABBY Administration Docusate Sodium 100 mg 03/28/21 17:00 03/29/21 08:22 Docusate Sodium 100 Mg Capsule PO 100 mg DAILY FABBY Administration Fentanyl Citrate 25 mcg 03/27/21 17:33 Fentanyl Citrate Inj (*Crx) 100 Mcg/2 Ml Vial IV PUSH Q2M PRN Pain Fluticasone Propionate 2 puff 03/27/21 14:57 Fluticasone Prop 220 Mcg (*Sp) 12 Gm Inhaler INHALATION DAILY PRN Shortness Of Breath Hydralazine HCl 10 mg 03/26/21 21:43 Hydralazine Hcl 20 Mg/Ml Vial IV PUSH Q8H PRN Blood Pressure - High Dextrose/Sodium Chloride 1,000 mls @ 100 mls/hr 03/26/21 21:10 03/29/21 02:44 Dextrose 5% Sodium Chloride 0.9% IV CONT 100 mls/hr .Q10H FABBY Administration Ceftriaxone Sodium/Dextrose 1 gm in 50 mls @ 100 mls/hr 03/26/21 22:00 03/28/21 21:59 Rocephin 1 Gm/D5w 50 Ml IVPB Infused Q24H FABBY Infusion Melatonin 3 mg 03/27/21 21:17 03/28/21 21:39 Melatonin 3 Mg Tablet PO 3 mg HS PRN Administration Sleep Morphine Sulfate 4 mg 03/27/21 06:46 03/27/21 06:53 Morphine Sulfate (*Crx) 4 Mg/Ml Inj IV PUSH 4 mg Q4H PRN Administration Pain Rated 7-10 Ondansetron HCl 4 mg 03/27/21 17:33 Ondansetron Inj 4 Mg/2 Ml Vial IV PUSH ONCE PRN Nausea
--- NOTE | 2021-03-29 11:12 | PM.DS ---
DS: Admitting Diagnosis Admitting Diagnosis Admitting Diagnosis: Nephrolith has DS: Discharge Diagnosis Discharge Diagnosis (1) Nephrolithiasis: Code(s): N20.0 - Calculus of kidney Status: Acute Assessment and Plan: Urology has been consulted. s/op cystoscopy and stone extraction Continue with IV fluid (2) Obstructed, uropathy: Code(s): N13.9 - Obstructive and reflux uropathy, unspecified Status: Acute Assessment and Plan: Continue with IV fluids. Urology has been consulted. will monitor renal function Monitor creatinine. (3) Hyperlipidemia: Code(s): E78.5 - Hyperlipidemia, unspecified Status: Chronic Assessment and Plan: Continue with home medication (4) UTI (urinary tract infection): Code(s): N39.0 - Urinary tract infection, site not specified Status: Acute Assessment and Plan: Urine and blood cultures are pending. Continue with Rocephin. (5) Acute kidney injury: Code(s): N17.9 - Acute kidney failure, unspecified Status: Acute Assessment and Plan: Continue with IV fluids. Most likely due to the nephrolithiasis and the obstructive uropathy. The patient's creatinine is 2 .52. will rehcekc her creatinine to ensure resolutin. (6) Hypertension: Code(s): I10 - Essential (primary) hypertension Status: Chronic Assessment and Plan: Hold lisinopril for now will do p.r.n. hydralazine. lisinopril will be hled until renal function recovers (7) Asthma: Code(s): J45.909 - Unspecified asthma, uncomplicated Status: Chronic Assessment and Plan: Continue with inhalers. (8) History of pulmonary embolism: Code(s): Z86.711 - Personal history of pulmonary embolism Status: Chronic Assessment and Plan: resume eliquis DS: Summary Hospital Course Reason for hospitalization: Nephrolithiasis Hospital Course: 75 doing so will was admitted complained of having kidney pain. Patient was found to have nephrolithiasis. Urology was consulted and procedure was performed to relieve the obstruction. Patient creatinine initially was high that is trending down now. Patient was also given antibiotics for possible UTI. Patient was continued on his home medication for pulmonary embolism. Today patient is feeling better so patient discharged home in stable condition. Will follow-up schedule an outpatient. Patient potassium is replace and monitor as an outpatient next week. Time spent discussing smoking cessation with patient: 3 to 10 minutes Status at Discharge Cognitive/behavioral status at discharge: Stable Functional status at discharge: independent ambulation Overall status at discharge: patient is back to baseline Time Spent with Patient Time attestation: Total time spent providing and/or coordinating discharge services: Time spent: Less than 30 minutes Exam Narrative: Exam Narrative: GENERAL: The patient is well developed, not in acute distress HEENT: Nonicteric sclerae, PERRLA, EOMI. Oropharynx clear. Moist mucous membranes. Conjunctivae appear well perfused. CHEST: Chest wall is nontender. HEART: Regular rate and rhythm without murmur, rubs, or gallops LUNGS: Clear to auscultation bilaterally. no respiratory distress ABDOMEN: Soft, positive bowel sounds, non-tender, no organomegaly. SKIN: No rash, no excessive bruising, petechiae, or purpura. NEUROLOGIC: Cranial nerves II-XII intact, alert and oriented x 3, no gross motor deficits EXTREMITIES: no edema, cyanosis or clubbing Const: General: cooperative, healthy appearing, comfortable, no acute distress, well developed, alert, awake and Physically active Nutritional Appearance: average body habitus and well nourished Orientation/consciousness: oriented to person, oriented to place, oriented to time and patient oriented x3 Limitations: no limitations HENMT: Head: normal to inspection, No palpable skull fracture present, normocephalic and atr
--- NOTE | 2021-03-29 11:49 | PC.NURSE ---
Pt is being discharged at this time. Pt has had IV removed, and discharge paperwork has been reviewed. Pt and his son both exhibited good understanding of discharge instructions. Pt was given a written script for [place] 5. Pt is being assisted down to the front door, in a wheelchair by staff.
== END 2021-03-29 11:50 | disposition home or self-care (01) | DRG 669 ==
PROVIDERS: Internal Medicine; Nurse Practitioner; Urology; Admitting Provider Family Medicine; PCP Internal Medicine; Visit Provider Internal Medicine
PROC: 0TC78ZZ Extirpation of Matter from Left Ureter, Via Natural or Artificial Opening Endoscopic (ICD-10-PCS; CPT 52352; principal; 2021-03-27 15:30)
DX: N20.2 Calculus of kidney with calculus of ureter (principal); N17.9 Acute kidney failure, unspecified; N39.0 Urinary tract infection, site not specified; E78.5 Hyperlipidemia, unspecified; I10 Essential (primary) hypertension; Z86.711 Personal history of pulmonary embolism; J45.909 Unspecified asthma, uncomplicated
CPT/HCPCS: 36415; 74420; 80048; 81001; 82365; 85025; 85027; 87040; 88300; 94640; 96361; 96365; 96375; 96376; A9270; C1769; G0378; G0379; J0330; J0696; J1885; J2270; J2405; J2704; J3010; J7042; J7120; Q9966

== ENCOUNTER 2021-10-25 17:38 | Emergency (ER) | payer MEDICARE, SELFPAY ==
[2021-10-25] VITALS (8 sets, daily range): BP systolic 122–145; BP diastolic 81–103; PULSE 75–105; RESP 16–20; TEMP 36.6–37.2; O2SAT 97–98
--- NOTE | ~2021-10-25 | CT_ITS ---
EXAMINATION: CT abdomen pelvis wo con DATE: 10/25/2021 19:21 INDICATION: Left flank pain. History of esophageal cancer. TECHNIQUE: Computed tomography (CT) of the abdomen and pelvis was performed without intravenous contr ast. The dose-length product was 232.78 mGy-cm. Automated exposure control and iterative reconstructi on technique were employed. COMPARISON: None. FINDINGS: There are changes of colonic interposition. There are gallstones. There are nonobstructing bilateral renal stones. There is a left-sided Bochdalek hernia. The liver, spleen, adrenal glands are unremarkable. There are pancreatic calcifications, consistent w ith chronic pancreatitis. Nonobstructive bowel gas pattern. Normal appendix. No free air or free flui d. Mild lumbar spondylosis. There is a 1 cm left lower lobe nodule, image 11 which may relate to foca l scarring extending from the adjacent pleural surface. Metastatic disease is less favored, although not excluded given the history of malignancy. IMPRESSION: 1. Left basilar nodule measuring 1 cm. Cannot exclude malignancy. Recommend follow-up low dose CT byron st or PET/CT scan. 2: Cholelithiasis. 3: Nonobstructing bilateral nephrolithiasis. 4: Surgical changes consistent with colonic interposition. 5: Chronic pancreatitis. Reviewed, dictated and finalized at location A. ER LAYER IMPRESSION: 1. Left basilar nodule measuring 1 cm. Cannot exclude malignancy. Recommend fol low-up low dose CT chest or PET/CT scan. 2: Cholelithiasis. 3: Nonobstructing bilateral nephrolithiasis. 4: Surgical changes consistent with colonic interposition. 5: Chronic pancreatitis.
--- NOTE | 2021-10-25 19:08 | ED.GENADULT ---
HPI - General Adult General Chief complaint: Abdominal Pain Stated complaint: left flank pain 2 days Time Seen by Provider: 10/25/21 19:04 History of Present Illness HPI narrative: Patient is a 75-year-old gentleman who presents the emergency department with chief complaint of left flank pain. Patient reports that he has history of kidney stones and reports he has had to have a urological procedures before in the past past stone. The patient reports that about 2 days ago he started having pain in his left flank states the pain is sharp reports that radiates to his left lower quadrant patient states this feels similar to when he is passed a stone in the past reports that his urine has been clear patient denies nausea vomiting. Patient states he is unsure who did his last urological procedure Related Data Home Medications Medication Instructions Recorded Confirmed Eliquis 5 mg PO BID 03/27/21 03/27/21 Flovent HFA 220 mcg INHALATION Q4H PRN 03/27/21 03/27/21 Serevent Diskus 50 mcg INHALATION Q4H PRN 03/27/21 03/27/21 lisinopril 20 mg PO DAILY 03/27/21 03/27/21 simvastatin 800 mg PO HS 03/27/21 03/27/21 Allergies Allergy/AdvReac Type Severity Reaction Status Date / Time adhesive Allergy Intermediate Rash Verified 10/25/21 18:24 Review of Systems Review of Systems: A 10 system review of systems was completed on the patient and is negative except for what is stated in the HPI. Nursing and ancillary documentation was reviewed. [facility] Past Medical History Medical History Asthma Coronary artery thrombosis With thrombectomy History of esophageal cancer With surgery, chemo and radiation. History of pulmonary embolism Hyperlipidemia Hypertension Surgical History Surgical History H/O bilateral cataract extraction H/O hernia repair History of gastric surgery Esophageal pull-through History of lung surgery To remove esophageal cancer Family History Family History Father Alcoholism Social History Social History Social History: The patient is . He has 2 children. Both of the sons are durable power senior attorney for healthcare. Patient is a full code. The patient smoked for brief period time when he was younger. He no longer smokes. Social drinker. No marijuana or illicit drugs. The patient is retired from [employer]. Smoking status: Former smoker Smoking end date: 11/07/1959 Gender identity (if verbalized by the patient): Male Spiritual care concerns: No Exam Narrative: GENERAL: Well-appearing, well-nourished, and in no acute distress. HEAD: Normocephalic, atraumatic. EYES: PERRLA and EOMI. ENT: Nares clear, no rhinorrhea or epistaxis. Mucous membranes moist. NECK: Supple. CHEST: Clear to auscultation. No respiratory distress. HEART: Regular rate and rhythm. No murmur heard. Normal peripheral pulses. ABDOMEN: Soft, nontender, nondistended, normal active bowel sounds. EXTREMITIES: Normal range of motion. No edema. SKIN: Warm, dry, no rash. NEURO: No focal deficits. Alert and oriented x3. PSYCH: Normal mood and affect. Course Vital Signs Vital signs: Vital Signs Temperature 36.6 C 10/25/21 17:42 Pulse Rate 105 H 10/25/21 17:42 Respiratory Rate 20 10/25/21 17:42 Blood Pressure 137/102 H 10/25/21 17:42 Pulse Oximetry 98 10/25/21 17:42 Temperature 36.9 C 10/25/21 18:20 Pulse Rate 75 10/25/21 19:03 Respiratory Rate 18 10/25/21 19:03 Blood Pressure 144/89 H 10/25/21 19:03 Pulse Oximetry 97 10/25/21 19:03 Medical Decision Making Vital Signs Vital Signs: Vital Signs Temperature 36.6 C 10/25/21 17:42 Pulse Rate 105 H 10/25/21 17:42 Respiratory Rate 20 10/25/21 17:42 Blood Pressure 137/102
[2021-10-25 19:44] LABS: Basophils Percent Auto 0.3 % (0.2-1.2); Eosinophils Absolute Auto 0.3 K/mm3 (0-0.3); Eosinophils Percent Auto 2.2 % (0-4.4); Hematocrit 44.7 % (42.0-52.0); Hemoglobin 14.9 g/dL (14.0-18.0); Immature Granulocyte Absolute 0.03 K/mm3 (0.00-0.031); Immature Granulocyte Percent A 0.2 % (0-0.5); Lymphocytes Absolute Auto 1.84 K/mm3 (0.9-3.2); Lymphocytes Percent Auto 14.2 % (18.3-44.2); Mean Corpuscular HGB Conc 33.3 g/dl (32-36); Mean Corpuscular Hemoglobin 30.6 pg (26-34); Mean Corpuscular Volume 91.8 fl (80-100); Mean Platelet Volume 9.8 fl (7.4-10.4); Monocytes Absolute Auto 1.4 K/mm3 (0.1-0.6); Neutrophils Absolute Auto 9.3 K/mm3 (1.3-6.7); Neutrophils Percent Auto 72.1 % (45.5-73.1); Platelet Count Result 220 k/mm3 (150-375); Red Blood Count 4.87 M/mm3 (4.6-6.20); Red Cell Distribution Width 14.6 % (11.5-14.5); White Blood Count 12.9 K/mm3 (4.5-10.0)
[2021-10-25] MEDS: MORPHINE SULFATE (*CRX) 4 MG/ML INJ IV PUSH (19:47)
[2021-10-25] MEDS: ONDANSETRON INJ 4 MG/2 ML VIAL IV PUSH (19:47)
[2021-10-25] MEDS: SODIUM CHLORIDE 0.9% IV 1,000 ML 999 ML IV CONT (19:47)
[2021-10-25 19:55] LABS: Alanine Aminotransferase 30 U/L (4-50); Albumin Level 4.6 g/dL (3.5-5.1); Alkaline Phosphatase 105 U/L (38-126); Anion Gap 9 mmol/L (8-16); Aspartate Amino Transferase 31 U/L (17-59); Bilirubin,Total 0.6 mg/dL (0.2-1.3); Blood Urea Nitrogen 19 mg/dL (9-20); Calcium 9.4 mg/dL (8.4-10.2); Carbon Dioxide 23 mmol/L (22-30); Chloride 103 mmol/L (98-107); Estimated CRCL calculation 32 ml/min; Estimated Glomerular Filt Rate 37; Glucose 111 mg/dL (65-110); Lipase 75 U/L (23-300); Potassium 3.9 mmol/L (3.4-5.0); Sodium 135 mmol/L (137-145)
[2021-10-25 20:06] LABS: Add Urine Microscopic? NO; Appearance Urine Clear (Clear); Bilirubin Urine Negative (Negative); Blood Urine Negative (Negative); Color Urine Yellow (Yellow); Glucose Urine UA Negative (Negative); Ketones Urine Negative (Negative); Leukocyte Esterase Ur Negative LEU/UL (Negative); Nitrate Urine Negative (Negative); Protein Urine Negative (Negative); Specific Grav Ur 1.026 (1.001-1.035); Urobilinogen Urine Negative mg/dL (<2.0)
[2021-10-25] MEDS: HYDROcodone/acetaminophen (*CRX) 5-325 MG TABLET 1 TAB PO (21:17)
[2021-10-25] MEDS: ONDANSETRON HCL ODT 4 MG TABLET PO (21:25)
== END 2021-10-25 21:30 | disposition home or self-care (01) ==
PROVIDERS: Emergency Provider Emergency Medicine; PCP Internal Medicine
DX: R10.9 Unspecified abdominal pain (principal); J45.909 Unspecified asthma, uncomplicated; I10 Essential (primary) hypertension; E78.5 Hyperlipidemia, unspecified; Z85.01 Personal history of malignant neoplasm of esophagus
CPT/HCPCS: 36415; 74176; 80053; 81003; 83690; 85025; 96361; 96374; 96375; 99284; A9270; J2270; J2405; J7030

== ENCOUNTER 2021-12-31 08:43 | Outpatient (CLI) | payer MEDICARE, SELFPAY ==
--- NOTE | ~2021-12-31 | CT_ITS ---
EXAMINATION: CT diagnostic chest w con DATE: 12/31/2021 09:34 INDICATION: Solitary pulmonary nodule TECHNIQUE: Transaxial computed tomographic images of the chest were obtained after the administration of 75 cc of Omnipaque 350 intravenous contrast. The dose-length product (DLP) was 233.12 mGy-cm. Ite rative reconstruction was used. COMPARISON: 10/25/2021 FINDINGS: A moderate size loculated left pleural effusion has developed since the comparison examinat ion. There are new airspace opacities of the left lower lobe with an apparent intraparenchymal absces s communicating with the pleural effusion. The previously described left lower lobe nodule is obscure d by left lower lobe airspace opacities. There are patchy airspace opacities of the right lung. There are changes of esophagectomy and gastric pull-through. The heart size is normal. There is mild media stinal lymphadenopathy, likely reactive. Stones are present in the nondistended gallbladder. There is mild thoracic spondylosis. IMPRESSION: 1. Left lower lobe pneumonia with possible parenchymal abscess in continuity with a moderate-sized lo culated left pleural effusion. 2. Previously described indeterminate left lower lobe nodule obscured by left lower lobe airspace opa cities. Follow-up after resolution of acute findings is recommended. 3. Patchy airspace opacities of the right lung, likely pneumonia. Reviewed, dictated and finalized at location F. DESIGNER IMPRESSION: 1. Left lower lobe pneumonia with possible parenchymal abscess in continuity wi th a moderate-sized loculated left pleural effusion. 2. Previously described indeterminate left lower lobe nodule obscured by left l ower lobe airspace opacities. Follow-up after resolution of acute findings is r ecommended. 3. Patchy airspace opacities of the right lung, likely pneumonia.
[2021-12-31 09:22] LABS: Estimated Glomerular Filt Rate 37
== END 2021-12-31 08:44 | disposition home or self-care (01) ==
LOC: ANHIMG 08:49
PROVIDERS: PCP Internal Medicine; Visit Provider Internal Medicine
DX: R91.1 Solitary pulmonary nodule (principal); R91.8 Other nonspecific abnormal finding of lung field
CPT/HCPCS: 71260; Q9967

== ENCOUNTER 2022-01-06 09:57 | Inpatient (IN) | payer MEDICARE, SELFPAY ==
[2022-01-06] VITALS (26 sets, daily range): BP systolic 82–116; BP diastolic 65–88; PULSE 69–149; RESP 18–41; TEMP 35.4–36.9; O2SAT 94–100; BMI 22.8
--- NOTE | ~2022-01-06 | XR_ITS ---
EXAMINATION: XR UGI w esoph water soluble EXAM DATE: 01/11/2022 14:45 INDICATION: Esophageal CA . Prior surgeries. Left sided empyema. TECHNIQUE: Limited single contrast water-soluble esophagram and upper GI examination was performed by radiologist Mo Jamison M.D., according to patient abilities. Pulsed dose reduction fluoroscopy was used with fluoroscopic time of 0.4 minutes. The DAP for this procedure was 1.0 Gycm2. A total of 58 images obtained for the exam. Correlation is made to chest abdomen pelvis CT 01/06/2022. FINDINGS: There is a 2 cm segment of mid esophagus that has moderate to severe stricturing, lumen on this examination measuring about 7 mm in diameter. Water-soluble contrast did pass beyond this to the distal aspect of the esophagus where there are some filling defects, ingested food. There is a small gastric pouch. Contrast did empty into an unremarkable duodenal bulb, proximal aspect of duodenum. G astroesophageal reflux was demonstrated. Mid esophageal stricturing could be scarring from reflux which was demonstrated. Recurrent esophageal cancer not entirely excludable. IMPRESSION: 1. 2 cm segment of moderate to severe mid esophageal stricturing. 2. Small gastric pouch with reflux demonstrated. Reviewed, dictated and finalized at location A. RANCE MANAGER
--- NOTE | ~2022-01-06 | XR_ITS ---
EXAMINATION: XR chest 2V DATE: 01/15/2022 09:13 INDICATION: Pneumonia TECHNIQUE: PA and lateral views of the chest are obtained. COMPARISON: 01/11/2022 FINDINGS: There is a moderate-sized left pleural effusion with a convex margin relative to the left l ower lobe. There are improved airspace opacities of the left lung base. Surgical clips project at the left hilum. The heart size is normal. The right lung is clear. There is mild thoracic spondylosis. N o pneumothorax is identified. IMPRESSION: 1. Moderate-sized left pleural effusion without significant change, possible empyema. 2. Persistent but improving airspace opacities of the left lung base, consistent with pneumonia. Reviewed, dictated and finalized at location B. TRIMMER IMPRESSION: 1. Moderate-sized left pleural effusion without significant change, possible em pyema. 2. Persistent but improving airspace opacities of the left lung base, consisten t with pneumonia.
--- NOTE | ~2022-01-06 | US_ITS ---
EXAMINATION: US venous doppler [facility] EXAM DATE: 01/07/2022 10:12 INDICATION: Shortness of breath. TECHNIQUE: Multiple grayscale, color flow and Doppler images of the lower extremity deep venous syste ms bilaterally were obtained and reviewed. There is no prior study for comparison. FINDINGS: Right side: The right common femoral, femoral and profunda veins demonstrate normal color flow, respi ratory variation, augmentation and compressibility. Compressibility, color flow confirmed within the right popliteal, posterior tibial, peroneal, and greater saphenous veins. Left side: The left common femoral, femoral and profunda veins demonstrate normal color flow, respira tory variation, augmentation and compressibility. Compressibility, color flow confirmed within the l eft popliteal, posterior tibial, peroneal, and greater saphenous veins. IMPRESSION: No lower extremity deep venous thrombosis bilaterally. Reviewed, dictated and finalized at location B. K PARTS INSPECTOR
--- NOTE | ~2022-01-06 | US_ITS ---
EXAMINATION: US thoracentesis DATE: 01/06/2022 13:39 INDICATION: pleural effusion TECHNIQUE: The procedure and its risks, benefits, and alternatives were discussed with the patient. P otential risks discussed included bleeding, infection, and pneumothorax. The patient understood the r isks and agreed to proceed. The skin was prepped and draped in sterile fashion. 1% lidocaine was used for local anesthesia. Under ultrasound guidance, a 5 Fr catheter with trochar was advanced into the left pleural effusion. Fluid was aspirated. The catheter was removed, and a dressing was applied. The re were no immediate complications. FINDINGS: Ultrasound images demonstrate a left pleural effusion and the catheter within the fluid. IMPRESSION: 1. Successful ultrasound-guided thoracentesis yielding 650 mL of opaque, light green fluid. Reviewed, dictated and finalized at location A. ODITY ANALYST
--- NOTE | ~2022-01-06 | XR_ITS ---
EXAMINATION: XR chest 1V portable DATE: 01/06/2022 10:43 INDICATION: Shortness of breath. TECHNIQUE: A single frontal view of the chest was obtained. COMPARISON: Chest CT 12/31/2021 FINDINGS: There are mild peripheral airspace opacities in right mid and lower lung zones. There are a irspace opacities in left mid and lower lung zones. There is moderate-sized left pleural effusion. No pneumothorax. The heart size is normal. There are surgical clips in the mediastinum from esophagecto my and gastric pull-through procedure. IMPRESSION: 1. Moderate-sized left pleural effusion. 2. Airspace opacities in the mid and lower lung zones, left worse than right, consistent with pneumon ia. Reviewed, dictated and finalized at location A. OFLASH POWDER MIXER IMPRESSION: 1. Moderate-sized left pleural effusion. 2. Airspace opacities in the mid and lower lung zones, left worse than right, c onsistent with pneumonia.
--- NOTE | ~2022-01-06 | XR_ITS ---
EXAMINATION: XR chest 1V portable DATE: 01/07/2022 08:55 INDICATION: Left empyema. COVID-19 pneumonia. TECHNIQUE: A single frontal view of the chest was obtained. COMPARISON: Chest single view 01/06/2022 FINDINGS: There are mild airspace opacities in right lower lung zone and left mid and lower lung zone s. There is a small left pleural effusion. No pneumothorax. The heart size is normal. Surgical clips overlie the mediastinum. IMPRESSION: 1. Stable airspace opacities in right lower lung zone and left mid and lower lung zones, consistent w ith pneumonia. 2. Stable small left pleural effusion. Reviewed, dictated and finalized at location A. JOINER IMPRESSION: 1. Stable airspace opacities in right lower lung zone and left mid and lower sienna ng zones, consistent with pneumonia. 2. Stable small left pleural effusion.
--- NOTE | ~2022-01-06 | CT_ITS ---
EXAMINATION: CT chest abdomen pelvis w con DATE: 01/06/2022 11:41 INDICATION: Shortness of breath. TECHNIQUE: Computed tomography (CT) of the chest, abdomen, and pelvis was performed with 100 mL Omnip aque 350 intravenous contrast. Automated exposure control and iterative reconstruction technique were employed. The dose-length product was 340.94 mGy-cm. COMPARISON: Chest CT 12/31/2021, CT abdomen and pelvis 10/25/2021 FINDINGS: CHEST CT: There are mild peripheral groundglass and airspace opacities in right lower lobe. There are airspace and groundglass opacities in lingula and left lower lobe. There is a moderate-sized left pleural effu [place] with pleural thickening. The heart size is normal. There are coronary artery calcifications. No pericardial effusion. There are changes of esophagectomy and gastric pull-through procedure. There is mild thoracic spondylosis. There is mild chronic anterior wedging of multiple midthoracic vertebral bodies. ABDOMEN/PELVIS CT: The liver is normal. There are gallstones in the gallbladder, which is normal in size. The spleen, pa ncreas, and adrenal glands are normal. There is cortical thinning of the kidneys. There is an 11 mm c yst in right kidney. There is a 4 mm stone in right kidney. There is a 2 mm stone in the left kidney. The prostate is mildly enlarged. There are no dilated loops of bowel. The appendix is normal. There are no pathologically enlarged lymph nodes. There is no free intraperitoneal fluid. There is severe l ower lumbar spondylosis. IMPRESSION: 1. Pneumonia involving left lower lobe and lingula. Mild peripheral atelectasis versus pneumonia in r ight lower lobe. 2. Moderate-sized left pleural effusion with pleural thickening suspicious for empyema. Reviewed, dictated and finalized at location A. STANT SERVICE MANAGER IMPRESSION: 1. Pneumonia involving left lower lobe and lingula. Mild peripheral atelectasis versus pneumonia in right lower lobe. 2. Moderate-sized left pleural effusion with pleural thickening suspicious for empyema.
--- NOTE | ~2022-01-06 | XR_ITS ---
EXAMINATION: [id number]_[id number]_CR DATE: 01/06/2022 13:51 INDICATION: Left pleural effusion status post thoracentesis. TECHNIQUE: A single frontal view of the chest was obtained. COMPARISON: Chest single view at 10:34 AM FINDINGS: There are airspace opacities in left mid and lower lung zones. There is a small left pleura l effusion. No pneumothorax. The heart size is normal. There are surgical clips in the mediastinum. IMPRESSION: 1. Small left pleural effusion with improvement status post thoracentesis. 2. Airspace opacities in left mid and lower lung zones, consistent with pneumonia. Reviewed, dictated and finalized at location A. NT RELATIONSHIP EXECUTIVE IMPRESSION: 1. Small left pleural effusion with improvement status post thoracentesis. 2. Airspace opacities in left mid and lower lung zones, consistent with pneumon ia.
--- NOTE | ~2022-01-06 | XR_ITS ---
EXAMINATION: XR chest 1V portable INDICATION: Left empyema TECHNIQUE: Portable AP chest at 0839 hours COMPARISON: 01/07/2022 FINDINGS: A small left pleural effusion persists without significant change. There are unchanged airs pace opacities in the left mid and lower lung zones and right lung base. There is no pneumothorax. Th e heart size is normal. Surgical clips project over the left mediastinum. IMPRESSION: 1. Small left pleural effusion, stable. 2. Stable airspace opacities of the lung bases and left midlung zone, consistent with pneumonia. Reviewed, dictated and finalized at location B. RVISOR [employer]LE [employer]ODUCTS IMPRESSION: 1. Small left pleural effusion, stable. 2. Stable airspace opacities of the lung bases and left midlung zone, consisten t with pneumonia.
--- NOTE | 2022-01-06 10:25 | ECG_ITS ---
Measurements Intervals [place] Rate: 130 P: 32 PA: 115 QRS: 39 QRSD: 82 T: 68 QT: 286 QTc: 422 Interpretive Statements SINUS TACHYCARDIA WITH SHORT PA INTERVAL WITH OCCASIONAL SUPRAVENTRICULAR PREMATURE COMPLEXES NONSPECIFIC ST & T-WAVE ABNORMALITY ABNORMAL ECG NO PREVIOUS ECG AVAILABLE FOR COMPARISON Electronically Signed On 01-06-2022 14:01:48 PHOTOGRAPHIC ENLARGER OPERATOR by Johnathan Mendez M.D.
[2022-01-06 10:41] LABS: Basophils Absolute Auto 0.1 K/mm3 (0.0-0.1); Basophils Percent Auto 0.2 % (0.2-1.2); Eosinophils Absolute Auto 0.1 K/mm3 (0-0.3); Eosinophils Percent Auto 0.2 % (0-4.4); Hematocrit 25.5 % (42.0-52.0); Hemoglobin 7.7 g/dL (14.0-18.0); Immature Granulocyte Absolute 0.65 K/mm3 (0.00-0.031); Immature Granulocyte Percent A 1.5 % (0-0.5); Lymphocytes Absolute Auto 0.72 K/mm3 (0.9-3.2); Lymphocytes Percent Auto 1.7 % (18.3-44.2); Mean Corpuscular HGB Conc 30.2 g/dl (32-36); Mean Corpuscular Hemoglobin 27.5 pg (26-34); Mean Corpuscular Volume 91.1 fl (80-100); Mean Platelet Volume 8.9 fl (7.4-10.4); Monocytes Absolute Auto 1.3 K/mm3 (0.1-0.6); Monocytes Percent Auto 3.1 % (2.6-8.5); Neutrophils Absolute Auto 39.8 K/mm3 (1.3-6.7); Neutrophils Percent Auto 93.3 % (45.5-73.1); Nucleated Red Blood Cells Perc 0.1 % (0.0-0.2); Platelet Count Result 590 k/mm3 (150-375); Red Cell Distribution Width 16.6 % (11.5-14.5); White Blood Count 42.7 K/mm3 (4.5-10.0)
[2022-01-06 10:49] LABS: Alanine Aminotransferase 31 U/L (4-50); Albumin Level 3.3 g/dL (3.5-5.1); Alkaline Phosphatase 258 U/L (38-126); Anion Gap 13 mmol/L (8-16); Aspartate Amino Transferase 43 U/L (17-59); Bilirubin,Total 0.6 mg/dL (0.2-1.3); Blood Urea Nitrogen 16 mg/dL (9-20); Calcium 8.7 mg/dL (8.4-10.2); Carbon Dioxide 13 mmol/L (22-30); Chloride 109 mmol/L (98-107); Estimated CRCL calculation 26 ml/min; Estimated Glomerular Filt Rate 33; Glucose 142 mg/dL (65-110); Potassium 3.5 mmol/L (3.4-5.0); Sodium 135 mmol/L (137-145)
[2022-01-06 11:02] LABS: INR 1.3; Prothrombin Time 15.5 Seconds (11.1-14.7)
[2022-01-06] MEDS: ONDANSETRON INJ 4 MG/2 ML VIAL IV PUSH (11:02)
[2022-01-06 11:03] LABS: Partial Thromboplastin Time 34.4 SECONDS (22.3-36.8)
[2022-01-06 11:04] LABS: Anisocytosis 2+ (NORMAL); Hypochromasia 2+ (NORMAL); Platelet Estimate Increased (Adequate)
--- NOTE | 2022-01-06 11:08 | ED.SOB ---
HPI - SOB/Dyspnea General Chief Complaint: Shortness of Breath/Dyspnea <Chichi Zuniga PA-C - Last Filed: 01/06/22 17:39> Stated Complaint: sob <TONY Rodas Last Filed: 01/06/22 17:39> Time Seen by Provider: 01/06/22 10:49 <TONY Rodas Last Filed: 01/06/22 17:39> Source: patient <TONY Rodas Last Filed: 01/06/22 17:39> Mode of arrival: ambulatory <TONY Rodas Last Filed: 01/06/22 17:39> Limitations: no limitations <TONY Rodas Last Filed: 01/06/22 17:39> History of Present Illness HPI Narrative: This is a 76 year old male that presents to the ER for shortness of breath. Ongoing over the last month. Associated with nausea, vomiting, and diarrhea. Reports he had COVID in the beginning November, seemed to recover from that and then had symptoms again about a week later. Reports his shortness of breath had worsened significantly which prompted him to be seen today. Reports he has not been able to do much because he is so short of breath. Also reports a cough. Reports he has had some dark stools. Denies fever, chest pain or abdominal pain. <TONY Rodas Last Filed: 01/06/22 17:39> Related Data Home Medications: Home Medications Medication Instructions Recorded Confirmed Flovent HFA 220 mcg INHALATION Q4H PRN 03/27/21 01/06/22 amlodipine 5 mg tablet 5 mg PO DAILY 12/08/21 01/06/22 apixaban 2.5 mg tablet 2.5 mg PO BID 12/08/21 01/06/22 atorvastatin 40 mg tablet 40 mg PO DAILY 12/08/21 01/06/22 losartan 50 mg tablet 50 mg PO DAILY 12/08/21 01/06/22 metoprolol succinate 50 mg 50 mg PO DAILY 12/08/21 01/06/22 tablet,extended release 24 hr <TONY Rodas Last Filed: 01/06/22 17:39> Allergies/Adverse Reactions: Allergies Allergy/AdvReac Type Severity Reaction Status Date / Time adhesive Allergy Intermediate Rash Verified 12/08/21 10:02 <Chichi Zuniga PA-C - Last Filed: 01/06/22 17:39> Review of Systems Review of Systems: CONSTITUTIONAL: Denies fever CARDIOVASCULAR: Reports edema. Denies chest pain RESPIRATORY: Reports cough and dyspnea. GASTROINTESTINAL: Reports nausea, vomiting, and diarrhea. Denies abdominal pain <Chichi Zuniga PA-C - Last Filed: 01/06/22 17:39> All systems reviewed & are unremarkable except as noted in HPI and below <Chichi Zuniga PA-C - Last Filed: 01/06/22 17:39> [facility] Past Medical History Medical History: Medical History Asthma Coronary artery thrombosis With thrombectomy History of esophageal cancer With surgery, chemo and radiation. History of pulmonary embolism Hyperlipidemia Hypertension <Chichi Zuniga PA-C - Last Filed: 01/06/22 17:39> Surgical History Surgical History: Surgical History H/O bilateral cataract extraction H/O hernia repair History of gastric surgery Esophageal pull-through History of lung surgery To remove esophageal cancer <Chichi Zuniga PA-C - Last Filed: 01/06/22 17:39> Family History Family History: Family History Father Alcoholism Heart disease Mother Mouth cancer Other Hypertension <Chichi Zuniga PA-C - Last Filed: 01/06/22 17:39> Social History Social History: Social History Social History: The patient is . He has 2 children. Both of the sons are durable power tool and die manager for healthcare. Patient is a full code. The patient smoked for brief period time when he was younger. He no longer smokes. Social drinker. No marijuana or illicit drugs. The patient is retired from [employer]. Smoking status: Former smoker Smoking end date: 11/07/1959 Alcohol intake: never Drinks per week: 0 Substance use: never Substance use type:
[2022-01-06 11:16] LABS: D Dimer < 0.27 ug/mL (<0.48)
--- NOTE | 2022-01-06 11:28 | PC.NURSE ---
Patient Status on RA at the time of assessment in the EC was 86% placed Pt on 3L and noted oxygen 94-96%
--- NOTE | 2022-01-06 11:41 | PC.NURSE ---
care assumed of patient at this time. Patient is currently in CT .
[2022-01-06 11:45] LABS: NT Pro B Type Natriuretic Pept 1710 pg/mL (5-100)
[2022-01-06 12:14] LABS: Lactic Acid Reflex 2.4 mmol/L (0.7-2.1)
[2022-01-06] MEDS: PANTOPRAZOLE SODIUM IV 40 MG VIAL IV PUSH (12:27)
[2022-01-06] MEDS: METOCLOPRAMIDE HCL INJ 10 MG/2 ML VIAL IV PUSH (12:27)
[2022-01-06] MEDS: diphenhydrAMINE HCl INJ 50 MG/ML VIAL 25 MG IV PUSH (12:27)
[2022-01-06 12:42] LABS: SARS-CoV-2 RNA PCR Positive
--- NOTE | 2022-01-06 12:42 | PC.NURSE ---
pt to us via stretcher.
--- NOTE | 2022-01-06 13:31 | PC.NURSE ---
pt has returned from Ultrasound.
[2022-01-06] MEDS: MORPHINE SULFATE (*CRX) 2 MG/ML INJ IV PUSH ×2 (13:42→16:36)
--- NOTE | 2022-01-06 13:46 | PC.NURSE ---
pt reports pain to lungs post procedure. medicated per midlevel order.
[2022-01-06 14:43] LABS: Appearance Pleural Fluid Turbid (Clear); Pleural fluid source Pleural fluid
[2022-01-06 14:57] LABS: Reflex Lactic Acid Yes or No Add Lactic
[2022-01-06 15:56] LABS: Lactic Acid 1.5 mmol/L (0.7-2.1)
--- NOTE | 2022-01-06 16:05 | PC.NURSE ---
Pt called out requesting pain medication. Provider aware, awaiting new orders.
[2022-01-06 16:09] LABS: Alveolar/Arterial O2 Gradient 62.1 mmHg; Base Excess ABG -10.1 mEq/l (+/-2.0); Carboxyhemoglobin 0.6 % THb (0-2.0); Device NASAL CANNULA; Fractional Inspired Oxygen 28 %; HCO3 ABG 12.7 mEq/l (22.0-26.0); Methemoglobin ABG 0.3 %THb (0-1.5); Modified Allen's Test Pass; Oxygen Content ABG 11.8 %vol (16.0-22.0); Oxygen Saturation ABG 98.4 % (95.0-100.0); Oxyhemoglobin 97.1 % THb (90.0-100.0); PCO2 ABG 19.5 mmHg (35.0-45.0); PO2 ABG 114.5 mmHg (80.0-100.0); PO2 FiO2 Ratio Arterial Blood 4.09 %; Site Drawn RIGHT RADIAL; Total Hemoglobin 8.5 g/dL (12.0-18.0); pH ABG 7.432 (7.350-7.450)
--- NOTE | 2022-01-06 18:17 | PC.NURSE ---
TRANSFERED FROM STRETCHER TO BED SAFELY, NO HARM NOTED, ADMISSION ASSESSMENT BEGAN, NOTED, EXPLAINED FACILITY PROTOCOL AND PATIENT VERBALIZED UNDERSTANDING, BED IN LOWEST POSITION, SIDERAILS UPXS 2, CALL LIGHT WITHIN REACH, NO DISTRESS NOTED AT THIS MOMENT.
[2022-01-06 18:34] LABS: Hematocrit 24.7 % (42.0-52.0); Hemoglobin 7.5 g/dL (14.0-18.0)
--- NOTE | 2022-01-06 18:56 | PC.NURSE ---
PATIENT ASYMPTOMATIC, LAYING IN BED, WATCHING TV, MONITOR SHOWS SINUS TACHYCARDIA OF 130 BPM, SAT AT BEDSIDE WATCHED PATIENT AND HR INCREASE TO 140 BPM, VITALS NOTED, PATIENT ALERT AND ORIENTED, REGULAR BREATH RATE AND EFFORT, TELEMETRY PLACED IN CHART ALONG WITH EKG, AFTER CALLING 2 DOCTORS ( WHO ARE ON PATIENTS CASE LOAD BUT INFORMED ME THAT THEY ARE NOT PIPEMAN) CALLED THE SPEEDOMETER INSPECTOR PIPEMAN, LEFT VOICEMAIL EXPLAINING THE REASON OF MY CALL, AND NOW WAITING RETURN OF PHONE CALL, MONITORING CLOSED. NON INVASIVE CARDIOVERSIONS SUCH BEARING DOWN AND BLOWING THROUGH STRAW WERE NON EFFECTIVE, WILL CONTINUE TO MONITOR CLOSEY.
--- NOTE | 2022-01-06 22:33 | PM.IMHP ---
H&P: HPI History of Present Illness Date/Time: Patient requires inpatient monitoring with expected length of stay to exceed 2 midnights for management of care. 01/06/22 22:33 Chief Complaint: Shortness of breath Narrative: Mr. Santiago is a 76-year-old gentleman who presented emergency room with complaints of increasing shortness of breath. Patient states that he had COVID-19 in the middle of November and was not hospitalized. Patient states he was feeling better after approximately a week of diagnosis and continue to so better until approximately 1 week ago when he started having shortness of breath again. Patient states that his shortness of breath continued to worsen today just became unbearable a decided to come to the hospital for further evaluation. Patient states he does have a cough with occasional white sputum. Patient states over the last 2 days he has had ?dry heaves? and has vomited once or twice. Patient states he has had chills and a subjective fever, but never checked his temperature. Patient states he was also having bouts of diarrhea off and on over the last 2 days. Patient denies any chest discomfort or palpitations. Patient denies any abdominal pain. Patient states he does have a known history of esophageal cancer, DVT, hypertension, and dyslipidemia. Upon evaluation in emergency room patient was noted to be hypoxic on room air and was placed on oxygen. Patient underwent CT of the chest, abdomen, and pelvis which showed pneumonia involving left lower lobe and lingula. Mild peripheral atelectasis versus pneumonia in the right lower lobe. Moderate size left pleural effusion with pleural thickening suspicious for empyema. Review of Systems Review of Systems: A 12 point review of systems was completed patient all pertinent positive and negative per HPI the remainder are unremarkable. [facility] Past Medical History Medical History (Updated 01/06/22 @ 22:41 by Savi Shook APRN) Asthma Coronary artery thrombosis With thrombectomy DVT (deep venous thrombosis) History of esophageal cancer With surgery, chemo and radiation. History of pulmonary embolism Hyperlipidemia Hypertension Surgical History Surgical History (Updated 01/06/22 @ 22:38 by Savi Shook APRN) H/O bilateral cataract extraction H/O hernia repair History of esophageal surgery History of gastric surgery Esophageal pull-through History of lung surgery To remove esophageal cancer Family History Family History Father Alcoholism Heart disease Mother Mouth cancer Other Hypertension Social History Social History Social History: The patient is . He has 2 children. Both of the sons are durable power attorney law clerk for healthcare. Patient is a full code. The patient smoked for brief period time when he was younger. He no longer smokes. Social drinker. No marijuana or illicit drugs. The patient is retired from [email or web address]. Smoking status: Never smoker Second hand tobacco smoke exposure: No Smoking end date: 11/07/1959 Alcohol intake: never Drinks per week: 0 Substance use: never Substance use type: does not use Gender identity (if verbalized by the patient): Male Spiritual care concerns: No Meds Home Medications and Allergies Home Medications Medication Instructions Recorded Confirmed Type Flovent HFA 220 mcg INHALATION Q4H PRN 03/27/21 01/06/22 History amlodipine 5 mg tablet 5 mg PO DAILY 12/08/21 01/06/22 History apixaban 2.5 mg tablet 2.5 mg PO BID 12/08/21 01/06/22 History atorvastatin 40 mg tablet 40 mg PO DAILY 12/08/21 01/06/22 History azelastine 137 mcg (0.1 %) nasal 1 spray INTRANASAL Q12H #30 ml 12/08/21 01/06/22 Rx spray aerosol losartan 50 mg tablet 50 mg PO DAILY 12/08/21 01/06/22 History metoprolol succinate 50 mg 50 mg PO DAILY 12/08/21 01/06/22 History tablet
[2022-01-06 23:09] LABS: Immature Reticulocyte Fraction 28.9 % (3.0-15.9); Reticulocyte Hemoglobin Conten 23.7 pg (28.2-35.7); Reticulocyte Percent 4.51 % (0.7-4.3); Reticulocytes Absolute 0.12 B/L (32.2-175.7)
[2022-01-07] VITALS (17 sets, daily range): BP systolic 93–125; BP diastolic 59–80; PULSE 71–128; RESP 18–22; TEMP 35.7–36.6; O2SAT 93–100
[2022-01-07] MEDS: HYDROcodone/acetaminophen (*CRX) 5-325 MG TABLET 1 TAB PO ×2 (00:14→19:49)
[2022-01-07 01:19] LABS: Iron 17 ug/dL (49-181); Percent Iron Saturation 11 % (20-50)
[2022-01-07 05:24] LABS: Basophils Absolute Auto 0.1 K/mm3 (0.0-0.1); Basophils Percent Auto 0.2 % (0.2-1.2); Eosinophils Percent Auto 0.1 % (0-4.4); Hematocrit 23.6 % (42.0-52.0); Hemoglobin 7.1 g/dL (14.0-18.0); Immature Granulocyte Absolute 0.44 K/mm3 (0.00-0.031); Immature Granulocyte Percent A 1.3 % (0-0.5); Lymphocytes Absolute Auto 1.45 K/mm3 (0.9-3.2); Lymphocytes Percent Auto 4.2 % (18.3-44.2); Mean Corpuscular HGB Conc 30.1 g/dl (32-36); Mean Corpuscular Hemoglobin 27.3 pg (26-34); Mean Corpuscular Volume 90.8 fl (80-100); Mean Platelet Volume 9.3 fl (7.4-10.4); Monocytes Absolute Auto 1.6 K/mm3 (0.1-0.6); Monocytes Percent Auto 4.6 % (2.6-8.5); Neutrophils Absolute Auto 31.2 K/mm3 (1.3-6.7); Neutrophils Percent Auto 89.6 % (45.5-73.1); Nucleated Red Blood Cells Perc 0.1 % (0.0-0.2); Platelet Count Result 517 k/mm3 (150-375); Red Cell Distribution Width 16.5 % (11.5-14.5); White Blood Count 34.8 K/mm3 (4.5-10.0)
[2022-01-07 05:38] LABS: Alanine Aminotransferase 21 U/L (4-50); Alkaline Phosphatase 184 U/L (38-126); Anion Gap 11 mmol/L (8-16); Aspartate Amino Transferase 20 U/L (17-59); Bilirubin,Total 0.4 mg/dL (0.2-1.3); Blood Urea Nitrogen 19 mg/dL (9-20); Calcium 8.5 mg/dL (8.4-10.2); Carbon Dioxide 16 mmol/L (22-30); Chloride 106 mmol/L (98-107); Estimated CRCL calculation 32 ml/min; Estimated Glomerular Filt Rate 37; Glucose 135 mg/dL (65-110); Potassium 3.5 mmol/L (3.4-5.0); Sodium 133 mmol/L (137-145)
[2022-01-07] MEDS: FLUTICASONE PROP 220 MCG (*SP) 12 GM INHALER 2 PUFF INHALATION ×2 (09:02→20:32)
[2022-01-07] MEDS: amLODIPine BESYLATE 5 MG TABLET PO (09:12)
[2022-01-07] MEDS: METOPROLOL SUCCINATE EXT REL 50 MG TABCR PO (09:13)
[2022-01-07] MEDS: ATORVASTATIN 40 MG TABLET PO (09:13)
[2022-01-07] MEDS: LOSARTAN POTASSIUM 50 MG TABLET PO (09:13)
[2022-01-07] MEDS: AZELASTINE HCL NASAL 0.1% 137 MCG/SPR 30 ML BTL 1 SPRAY NASAL ×2 (09:14→19:51)
--- NOTE | 2022-01-07 09:30 | PM.CNPUL ---
Assessment and Plan Assessment and plan (1) Empyema: Code(s): J86.9 - Pyothorax without fistula Status: Acute Assessment and Plan: Patient with an evidence of an empyema dating back to CT scan of the chest on 12/31/2021. Thoracentesis on 01/06/2022 demonstrated opaque like green fluid with a positive Gram stain for Gram-positive cocci and Gram-positive bacilli. Patient should be evaluated by thoracic surgery for placement of a surgical chest tube and he has been excepted to [facility] for transfer. At this time will continue vancomycin and Zosyn pending cultures. Patient is hemodynamically stable and clinically feels better. Patient's leukocytosis is improved. (2) Pneumonia due to 2019 novel coronavirus: Code(s): U07.1 - COVID-19; J12.82 - Pneumonia due to coronavirus disease 2019 Status: Acute Assessment and Plan: Patient has a history of COVID pneumonia in the middle of November 2021. He tells me he completely recovered. Currently the patient has tested RT PCR positive on 01/06/2022. The patient also has infiltrates in his right base and is requiring oxygen. At this time it is impossible to tell if this is an active COVID infection verses continued RT PCR positivity from his previous infection. Given the minimal toxicity seen with remdesivir I recommend 5 days of active treatment. I also think it would be prudent to start active treatment to minimize exposure if there is active viral infection and the patient requires thoracic surgery procedures such as VATS in the future. will follow for any progression of COVID. At this time given his current empyema I will not treat with dexamethasone. (3) Asthma: Code(s): J45.909 - Unspecified asthma, uncomplicated Status: Chronic Assessment and Plan: Patient has a history of lifelong asthma and has had no exacerbations in the last year. Last admitted in the 1980s. Dust and dirt exacerbate his asthma. He has no wheezing now. I will continue Flovent 220 at 2 puffs twice a day while he is in the hospital. He is currently using albuterol 1 to 2 times a day on Flovent 220 2 puffs BID and he may benefit from a long-acting beta agonist on discharge. (4) History of pulmonary embolism: Code(s): Z86.711 - Personal history of pulmonary embolism Status: Chronic Assessment and Plan: DVT and PE 5-6 years ago in which he had percutaneous thrombus extraction and a temporary IVC filter placed which was removed 6 weeks later on lifelong anticoagulation per his cat scan technologist. at this time I will discontinued the apixaban and place him on Lovenox 1 mg per kilos b.i.d. so that this could be held in anticipation of possible future chest tube. Currently his D-dimer is negative at less than 0.27. I will order lower extremity Dopplers at this time. Discussed with Dr. Charles Will follow with you History of Present Illness History of Present Illness Consult date: 01/07/22 Requesting physician: Malick Charles MD Reason for consult: other (empyema) Chief complaint: Empyema Narrative: 01/07/2022: This is a new Pulmonary consultation for empyema 76-year-old male with a history of hypertension, hyperlipidemia, lifelong asthma controlled with flovent, esophageal cancer status post preoperative chemotherapy and radiation in 2010 with esophageal and gastric resection in 2011 requiring repeat operation for leak and repeat operation for our hernia, DVT and PE 5-6 years ago in which he had percutaneous thrombus extraction and a temproary IVC filter placed which was removed 6 weeks later on lifelong anticoagulation per his cat scan technologist. Patient had abdominal pain and on 10/25/[address] scan of the abdomen looking for kidney stones. There were no stones but there is a 1 cm left lower lobe nodule and the recommendation was to repeat a CT scan. The patient developed COVID in the middle of
[2022-01-07 09:54] LABS: Lactate Dehydrogenase 351 U/L (313-618)
[2022-01-07 10:59] LABS: Folic Acid 8.6 ng/mL (2.76->20)
[2022-01-07] MEDS: REMDESIVIR 200 MG/NS 250 ML 200 MG/250 ML BAG 250 MG IVPB (11:00)
--- NOTE | 2022-01-07 13:35 | PM.IMPN ---
Progress Note: A&P Assessment and Plan (1) Acute hypoxemic respiratory failure: Code(s): J96.01 - Acute respiratory failure with hypoxia Status: Acute Assessment and Plan: Patient was hypoxic on admission. Hypoxia related to the pneumonia empyema. ABG showing 7.43/19/114 on 2 L. Currently he is on 4 L but he is 100%. Wean oxygen as tolerated. (2) Sepsis: Code(s): A41.9 - Sepsis, unspecified organism Status: Acute Assessment and Plan: Sepsis present on admission with lactic acidosis, leukocytosis and tachycardia. Also has hypoxia. Related to the empyema and bacterial pneumonia. Complicated by COVID pneumonia. Tachycardia improved. White count trending downward. Lactic acid level has normalized as well. Continue IV antibiotics. (3) Empyema: Code(s): J86.9 - Pyothorax without fistula Status: Acute Assessment and Plan: Patient initially found to have a left basilar nodule in October 2021. CT scan of the chest 12/31/21 showed left lower lobe pneumonia with possible parenchymal abscess in continuity with moderate size loculated left pleural effusion with patchy airspace opacity in the right lung. Patient contacted his physician but did not get a call back. He ultimately presented to the emergency room here on 01/06/[address] scan now showing airspace opacities in the right lower lobe, lingula and left lower lobe as well as a moderate-sized left pleural effusion with pleural thickening suspicious for empyema. He underwent thoracentesis which yielded 650 mL of opaque light green fluid. Pulmonary has been consulted. WBC 43K that has improved to 35K today. Continue vancomycin and Zosyn at this time. Follow up on culture results. Patient has been accepted to [facility] and are awaiting a bed at this time. (4) Pneumonia: Qualifiers: Laterality: bilateral Lung location: lower lobe of lung Pneumonia type: due to unspecified organism Qualified Code(s): J18.9 - Pneumonia, unspecified organism Code(s): J18.9 - Pneumonia, unspecified organism Status: Acute Assessment and Plan: As above. Imaging showing bilateral lower lobe as well as lingular airspace disease. The left lower lobe findings most likely bacterial but the other findings could be related to his COVID infection. Continue IV antibiotics. Remdesivir has been started as well. Hold on steroids at this time. Wean oxygen as tolerated. (5) Pneumonia due to 2019 novel coronavirus: Code(s): U07.1 - COVID-19; J12.82 - Pneumonia due to coronavirus disease 2019 Status: Acute Assessment and Plan: Patient had COVID in November 2021. He is unvaccinated. Patient was tested for COVID here and was positive on 01/06/2022. On imaging, some of these airspace opacities could be related to COVID. Discussed with Pulmonary. Remdesivir was started. Wean oxygen as tolerated. Continue droplet isolation. (6) CKD (chronic kidney disease): Code(s): N18.9 - Chronic kidney disease, unspecified Status: Acute Assessment and Plan: Unclear on baseline creatinine value. In March 2021, creatinine ranged from 2.5-3.1. Creatinine in October was 1.8. Creatinine here was 2.0 and suspect this is probably baseline. CT scan did show cortical thinning of the kidneys. He also had bilateral nephrolithiasis. Repeat creatinine today is 1.8. Will continue to follow. (7) Anemia: Qualifiers: Anemia type: unspecified type Qualified Code(s): D64.9 - Anemia, unspecified Code(s): D64.9 - Anemia, unspecified Status: Acute Assessment and Plan: Patient's hemoglobin was 14.9 in October. Hemoglobin on admission here was 7.7. Iron studies are consistent with anemia chronic disease. B12 and folate level normal. No evidence of acute blood loss anemia but patient is on longstanding anticoagulation. Patient did have a Hemoccult stool the emergency room [facility]
[2022-01-07] MEDS: ENOXAPARIN 80 MG/0.8 ML SYRINGE 70 MG SUB-Q (19:49)
[2022-01-08] VITALS (13 sets, daily range): BP systolic 106–126; BP diastolic 70–78; PULSE 83–119; RESP 18–22; TEMP 36–37; O2SAT 98–100
--- NOTE | 2022-01-08 | ECHO_ITS ---
Patient Info Name: Dhruv Santiago Age: 76 years : 1945 Gender: Male Ht: 69 in Wt: 155 lbs BSA: 1.85 m2 HR: 94 bpm BP: 117 / 78 mmHg Heart Rhythm: Sinus Rhythm Technical Quality: Fair Exam Date: 01/08/2022 3:08 PM Exam Location: [facility] Pulmonary Exam Room: 231 Patient Status: Inpatient Admit Date: 01/06/2022 Staff Ordering Physician: Malick Charles MD Restaurant Worker: Joan Deal RDCS Attending Provider: Clemencia Solares MD Exam Type: CA echo doppler color flow Study Info Indications - tachycardia hx/o ca chemo radiation Complete two-dimensional, color flow and Doppler transthoracic echocardiogram is performed. Summary 1. Complete two-dimensional, color flow and Doppler transthoracic echocardiogram is performed. 2. Left ventricular chamber dimension is normal. 3. Left ventricular systolic function is normal, estimated at 65-70%. 4. There is no increased left ventricular wall thickness. 5. The left ventricular diastolic function is grade I diastolic dysfunction. 6. There is mild mitral valve regurgitation. 7. There is mild tricuspid valve regurgitation. 8. Mild pulmonary hypertension, estimated pulmonary arterial systolic pressure is 42 mmHg. Left Ventricle Left ventricular chamber dimension is normal. Left ventricular systolic function is normal, estimated at 65-70%. There is no increased left ventricular wall thickness. The left ventricular diastolic function is grade I diastolic dysfunction. Right Ventricle Right ventricular chamber dimension is normal. Right ventricular systolic function is normal. Left Atria Left atrial chamber dimension is normal. Right Atria Right atrial chamber dimension is normal. Aortic Valve The aortic valve is not well visualized. There is no aortic valve stenosis. There is no aortic valve regurgitation. There is mild aortic valve calcification. Pulmonic Valve The pulmonic valve is not well visualized. There is trace pulmonic regurgitation. Mitral Valve The mitral valve has thickened leaflets. There is mild mitral valve regurgitation. The mitral valve annulus is moderately calcified. Tricuspid Valve The tricuspid valve leaflets are normal. There is mild tricuspid valve regurgitation. Mild pulmonary hypertension, estimated pulmonary arterial systolic pressure is 42 mmHg. Pericardium/Pleural The pericardium appears epicardial fat pad. Aorta The aortic root size at the sinus of Valsalva is normal. There is mild aortic atherosclerosis. Left Ventricular Outflow Tract Name Value Normal LVOT 2D LVOT Diameter 2.0 cm LVOT Doppler LVOT Peak Gradient 7 mmHg LVOT Mean Gradient 4 mmHg LVOT VTI 21 cm LVOT VTI/AV VTI Ratio 1.0 LVOT Stroke Volume 66 ml LVOT CO 17.6 l/min LVOT CI 9.5 l/min/m2 Pulmonic Valve Name
[2022-01-08 04:09] LABS: Basophils Percent Auto 0.1 % (0.2-1.2); Eosinophils Absolute Auto 0.2 K/mm3 (0-0.3); Eosinophils Percent Auto 0.8 % (0-4.4); Hematocrit 22.9 % (42.0-52.0); Hemoglobin 7.1 g/dL (14.0-18.0); Immature Granulocyte Absolute 0.33 K/mm3 (0.00-0.031); Immature Granulocyte Percent A 1.3 % (0-0.5); Lymphocytes Absolute Auto 1.51 K/mm3 (0.9-3.2); Lymphocytes Percent Auto 6.1 % (18.3-44.2); Mean Corpuscular Hemoglobin 27.6 pg (26-34); Mean Corpuscular Volume 89.1 fl (80-100); Monocytes Absolute Auto 1.5 K/mm3 (0.1-0.6); Monocytes Percent Auto 6.2 % (2.6-8.5); Neutrophils Absolute Auto 21.1 K/mm3 (1.3-6.7); Neutrophils Percent Auto 85.5 % (45.5-73.1); Nucleated Red Blood Cells Perc 0.2 % (0.0-0.2); Platelet Count Result 501 k/mm3 (150-375); Red Blood Count 2.57 M/mm3 (4.6-6.20); Red Cell Distribution Width 16.4 % (11.5-14.5); White Blood Count 24.7 K/mm3 (4.5-10.0)
[2022-01-08 04:20] LABS: INR 1.4; Prothrombin Time 16.5 Seconds (11.1-14.7)
[2022-01-08 04:31] LABS: Alanine Aminotransferase 32 U/L (4-50); Albumin Level 2.8 g/dL (3.5-5.1); Anion Gap 9 mmol/L (8-16); Blood Urea Nitrogen 20 mg/dL (9-20); Calcium 8.2 mg/dL (8.4-10.2); Carbon Dioxide 20 mmol/L (22-30); Chloride 105 mmol/L (98-107); Estimated CRCL calculation 30 ml/min; Estimated Glomerular Filt Rate 35; Glucose 117 mg/dL (65-110); Magnesium 2.1 mg/dL (1.6-2.3); Phosphorus 4.3 mg/dL (2.5-4.5); Potassium 3.8 mmol/L (3.4-5.0); Sodium 134 mmol/L (137-145)
[2022-01-08] MEDS: HYDROcodone/acetaminophen (*CRX) 5-325 MG TABLET 1 TAB PO ×2 (05:08→21:26)
[2022-01-08] MEDS: ONDANSETRON INJ 4 MG/2 ML VIAL IV PUSH (05:32)
[2022-01-08] MEDS: FLUTICASONE PROP 220 MCG (*SP) 12 GM INHALER 2 PUFF INHALATION ×2 (08:21→20:03)
[2022-01-08] MEDS: ATORVASTATIN 40 MG TABLET PO (08:51)
[2022-01-08] MEDS: METOPROLOL SUCCINATE EXT REL 50 MG TABCR PO (08:51)
[2022-01-08] MEDS: AZELASTINE HCL NASAL 0.1% 137 MCG/SPR 30 ML BTL 1 SPRAY NASAL ×2 (08:52→20:20)
[2022-01-08] MEDS: ENOXAPARIN 80 MG/0.8 ML SYRINGE 70 MG SUB-Q ×2 (08:53→20:19)
[2022-01-08] MEDS: metroNIDAZOLE 500 MG/ISO 100ML 500 MG/100 ML BAG 100 MG IVPB ×3 (08:56→20:19)
[2022-01-08 08:58] LABS: HIV 1/2 Ab P24 Ag Result Negative (Negative)
--- NOTE | 2022-01-08 09:02 | PM.PNPUL ---
Progress Note: A&P Assessment and Plan (1) Empyema: Code(s): J86.9 - Pyothorax without fistula Status: Acute Assessment and Plan: 01/07 Patient with an evidence of an empyema dating back to CT scan of the chest on 12/31/2021. Thoracentesis on 01/06/2022 demonstrated opaque like green fluid with a positive Gram stain for Gram-positive cocci and Gram-positive bacilli. Patient should be evaluated by thoracic surgery for placement of a surgical chest tube and he has been excepted to [facility] for transfer. At this time will continue vancomycin and Zosyn pending cultures. Patient is hemodynamically stable and clinically feels better. Patient's leukocytosis is improved. 01/08 Clinically he is improved. His white blood cell count has improved to 24.7. Cultures are negative. Continue vancomycin and Zosyn for now. Awaiting transfer for thoracic surgery evaluation for surgical chest tube. (2) Pneumonia due to 2019 novel coronavirus: Code(s): U07.1 - COVID-19; J12.82 - Pneumonia due to coronavirus disease 2019 Status: Acute Assessment and Plan: 01/07 Patient has a history of COVID pneumonia in the middle of November 2021. He tells me he completely recovered. Currently the patient has tested RT PCR positive on 01/06/2022. The patient also has infiltrates in his right base and is requiring oxygen. At this time it is impossible to tell if this is an active COVID infection verses continued RT PCR positivity from his previous infection. Given the minimal toxicity seen with remdesivir I recommend 5 days of active treatment. I also think it would be prudent to start active treatment to minimize exposure if there is active viral infection and the patient requires thoracic surgery procedures such as VATS in the future. will follow for any progression of COVID. At this time given his current empyema I will not treat with dexamethasone. 01/08 Patient's oxygenation has improved. He is on 2 L nasal cannula oxygen now. He is on day 2 of remdesivir. I would continue for 5 days. (3) Asthma: Code(s): J45.909 - Unspecified asthma, uncomplicated Status: Chronic Assessment and Plan: 01/07/ Patient has a history of lifelong asthma and has had no exacerbations in the last year. Last admitted in the . Dust and dirt exacerbate his asthma. He has no wheezing now. I will continue Flovent 220 at 2 puffs twice a day while he is in the hospital. He is currently using albuterol 1 to 2 times a day on Flovent 220 2 puffs BID and he may benefit from a long-acting beta agonist on discharge. 3/4 no wheezes, continue flovent 220 BID. 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 at this time I will discontinued the apixaban and place him on Lovenox 1 mg per kilos b.i.d. so that this could be held in anticipation of possible future chest tube. Currently his D-dimer is negative at less than 0.27. I will order lower extremity Dopplers at this time. 3/4 LE dopplers negative, lovenox 70 BID for now. Inpatient Pulmonary Services will resume on 01/11/2022. Called the on-call pulmonary physician with questions. Subjective Date/time seen: 01/08/22 09:02 Interval history: 01/07/2022: This is a new Pulmonary consultation for empyema 76-year-old male with a history of hypertension, hyperlipidemia, lifelong asthma controlled with flovent, esophageal cancer status post preoperative chemotherapy and radiation in 2010 with esophageal and gastric resection in 2011 requiring repeat operation for leak and repeat operation for our hernia, DVT and PE 5-6 years ago in which he had percuta
[2022-01-08] MEDS: REMDESIVIR 100 MG/NS 250 ML 100 MG/250 ML BAG 250 MG IVPB (10:14)
--- NOTE | 2022-01-08 12:28 | PM.IMPN ---
Progress Note: A&P Assessment and Plan (1) Acute hypoxemic respiratory failure: Code(s): J96.01 - Acute respiratory failure with hypoxia Status: Acute Assessment and Plan: Patient was hypoxic on admission. Hypoxia related to the pneumonia empyema. ABG showing 7.43/19/114 on 2 L. Was up to 4 L but able to be weaned to 1L now. Wean oxygen as tolerated. Check Echo. Check TSH. (2) Sepsis: Code(s): A41.9 - Sepsis, unspecified organism Status: Acute Assessment and Plan: Sepsis present on admission with lactic acidosis, leukocytosis and tachycardia. Also has hypoxia. Related to the empyema and bacterial pneumonia. Complicated by COVID pneumonia. Tachycardia improved felt related to the soft BP and from sepsis. BP soft so will hold Norvasc and Cozaar. Continue Metoprolol. White count trending downward. Lactic acid level has normalized as well. Continue IV antibiotics. (3) Empyema: Code(s): J86.9 - Pyothorax without fistula Status: Acute Assessment and Plan: Patient initially found to have a left basilar nodule in October 25, 2021. CT scan of the chest 12/31/21 showed left lower lobe pneumonia with possible parenchymal abscess in continuity with moderate size loculated left pleural effusion with patchy airspace opacity in the right lung. Patient contacted his physician but did not get a call back. He ultimately presented to the emergency room here on 01/06/[address] scan now showing airspace opacities in the right lower lobe, lingula and left lower lobe as well as a moderate-sized left pleural effusion with pleural thickening suspicious for empyema. He underwent thoracentesis which yielded 650 mL of opaque light green fluid. Pulmonary has been consulted. WBC 43K that has improved to 25K today. BCx NGTD. Pleural Gram stain showing gram positive cocci and gram positive bacilli but no fungal elements. Anaerobic pleural cx growing gram positive cocci in chains. HIV negative. Patient was on vancomycin and Zosyn but has CKD so will change to Vanco, Flagyl and Cefepime. Follow up on culture results. Patient has been accepted to [facility] and are awaiting a bed at this time. (4) Pneumonia: Qualifiers: Laterality: bilateral Lung location: lower lobe of lung Pneumonia type: due to unspecified organism Qualified Code(s): J18.9 - Pneumonia, unspecified organism Code(s): J18.9 - Pneumonia, unspecified organism Status: Acute Assessment and Plan: As above. Imaging showing bilateral lower lobe as well as lingular airspace disease. The left lower lobe findings most likely bacterial but the other findings could be related to his COVID infection. Continue IV antibiotics. Remdesivir has been started as well. Hold on steroids at this time. Wean oxygen as tolerated. (5) Pneumonia due to 2019 novel coronavirus: Code(s): U07.1 - COVID-19; J12.82 - Pneumonia due to coronavirus disease 2019 Status: Acute Assessment and Plan: Patient had COVID in November 2021 (unverified). He is unvaccinated. Patient was tested for COVID here and was positive on 01/06/22. On imaging, some of these airspace opacities could be related to COVID. Discussed with Pulmonary. Remdesivir was started. Able to wean oxygen and now down to 1L. Continue droplet isolation. (6) CKD (chronic kidney disease): Code(s): N18.9 - Chronic kidney disease, unspecified Status: Acute Assessment and Plan: Unclear on baseline creatinine value. In March 2021, creatinine ranged from 2.5-3.1. Creatinine in October was 1.8. Creatinine here was 2.0 and suspect this is probably baseline. CT scan did show cortical thinning of the kidneys. He also had bilateral nephrolithiasis. Repeat creatinine today is 1.9. Will continue to follow. (7) Anemia: Qualifiers: Anemia type: unspecified type Qualified Code(s): D64.9 - Anemia, unspecified Code(s
[2022-01-08] MEDS: PANTOPRAZOLE 40 MG TABLET PO (13:33)
[2022-01-08 16:07] LABS: Glucose Pleural Fluid 235 mg/dL
[2022-01-08] MEDS: polyethylene glycoL 3350 17 GM POWD.PACK PO (21:25)
[2022-01-09] VITALS (16 sets, daily range): BP systolic 100–127; BP diastolic 64–78; PULSE 77–110; RESP 18–22; TEMP 35.8–36.9; O2SAT 98–100
[2022-01-09] MEDS: metroNIDAZOLE 500 MG/ISO 100ML 500 MG/100 ML BAG 100 MG IVPB ×4 (03:45→20:01)
[2022-01-09 05:46] LABS: Basophils Absolute Auto 0.1 K/mm3 (0.0-0.1); Basophils Percent Auto 0.3 % (0.2-1.2); Eosinophils Absolute Auto 0.3 K/mm3 (0-0.3); Eosinophils Percent Auto 1.6 % (0-4.4); Hematocrit 27.6 % (42.0-52.0); Hemoglobin 7.9 g/dL (14.0-18.0); Immature Granulocyte Absolute 0.22 K/mm3 (0.00-0.031); Immature Granulocyte Percent A 1.1 % (0-0.5); Lymphocytes Absolute Auto 1.76 K/mm3 (0.9-3.2); Lymphocytes Percent Auto 8.7 % (18.3-44.2); Mean Corpuscular HGB Conc 28.6 g/dl (32-36); Mean Corpuscular Hemoglobin 27.8 pg (26-34); Mean Corpuscular Volume 97.2 fl (80-100); Mean Platelet Volume 9.5 fl (7.4-10.4); Monocytes Absolute Auto 1.2 K/mm3 (0.1-0.6); Monocytes Percent Auto 5.7 % (2.6-8.5); Neutrophils Absolute Auto 16.6 K/mm3 (1.3-6.7); Neutrophils Percent Auto 82.6 % (45.5-73.1); Nucleated Red Blood Cells Perc 0.1 % (0.0-0.2); Platelet Count Result 525 k/mm3 (150-375); Red Blood Count 2.84 M/mm3 (4.6-6.20); Red Cell Distribution Width 16.6 % (11.5-14.5); White Blood Count 20.1 K/mm3 (4.5-10.0)
[2022-01-09 05:55] LABS: Albumin Level 2.8 g/dL (3.5-5.1); Anion Gap 10 mmol/L (8-16); Blood Urea Nitrogen 18 mg/dL (9-20); Calcium 7.9 mg/dL (8.4-10.2); Carbon Dioxide 19 mmol/L (22-30); Chloride 106 mmol/L (98-107); Estimated CRCL calculation 36 ml/min; Estimated Glomerular Filt Rate 42; Glucose 94 mg/dL (65-110); Phosphorus 3.9 mg/dL (2.5-4.5); Potassium 3.2 mmol/L (3.4-5.0); Sodium 135 mmol/L (137-145)
[2022-01-09 06:01] LABS: INR 1.4; Prothrombin Time 16.5 Seconds (11.1-14.7)
[2022-01-09] MEDS: FLUTICASONE PROP 220 MCG (*SP) 12 GM INHALER 2 PUFF INHALATION ×2 (08:11→20:54)
--- NOTE | 2022-01-09 09:07 | PM.IMPN ---
Progress Note: A&P Assessment and Plan (1) Acute hypoxemic respiratory failure: Code(s): J96.01 - Acute respiratory failure with hypoxia Status: Acute Assessment and Plan: Patient was hypoxic on admission. Hypoxia related to the pneumonia empyema. ABG showing 7.43/19/114 on 2 L. Was up to 4 L but able to be weaned to 1L now. Will stop O2 and monitor. (2) Sepsis: Code(s): A41.9 - Sepsis, unspecified organism Status: Acute Assessment and Plan: Sepsis present on admission with lactic acidosis, leukocytosis, tachycardia and hypoxia. Related to the empyema and bacterial pneumonia. Complicated by COVID pneumonia. Tachycardia improved overall but still persistent. EKG showing showing sinus tach with short NM and PAC. BP soft Norvasc and Cozaar held. Metoprolol continued. TSH normal. Doubt PE and already on treatment dose Lovenox. Tachycardia felt related to the soft BP and from sepsis. Echo pending. White count trending downward still. Lactic acid level has normalized as well. Continue IV antibiotics. Repeat EKG. Advance Toprol (3) Empyema: Code(s): J86.9 - Pyothorax without fistula Status: Acute Assessment and Plan: Patient initially found to have a left basilar nodule in October 25, 2021. Repeat CT scan of the chest ordered 12/31/21 which showed left lower lobe pneumonia with possible parenchymal abscess in continuity with moderate size loculated left pleural effusion with patchy airspace opacity in the right lung. Patient contacted his physician but did not get a call back. He ultimately presented to the emergency room here on 01/06/[address] scan now showing airspace opacities in the right lower lobe, lingula and left lower lobe as well as a moderate-sized left pleural effusion with pleural thickening suspicious for empyema. He underwent thoracentesis which yielded 650 mL of opaque light green fluid. Pulmonary was consulted. WBC 43K that has improved to 20K today. BCx NGTD. Pleural Gram stain showing gram positive cocci and gram positive bacilli but no fungal elements. Anaerobic pleural cx growing gram positive cocci in chains. Sputum growing yeast. HIV negative. Patient was on vancomycin and Zosyn but has CKD so changed to Vanco, Flagyl and Cefepime. Follow up on culture results. Patient has been accepted to [facility] and are still waiting a bed at this time. Spoke with [facility] yesterday but no bed available. Spoke with [facility] and [facility] today and still no bed available. (4) Pneumonia: Qualifiers: Laterality: bilateral Lung location: lower lobe of lung Pneumonia type: due to unspecified organism Qualified Code(s): J18.9 - Pneumonia, unspecified organism Code(s): J18.9 - Pneumonia, unspecified organism Status: Acute Assessment and Plan: As above. Imaging showing bilateral lower lobe as well as lingular airspace disease. The left lower lobe findings most likely bacterial but the other findings could be related to his COVID infection. Continue IV antibiotics. Remdesivir has been started as well. Hold on steroids at this time. Wean oxygen off today. (5) Pneumonia due to 2019 novel coronavirus: Code(s): U07.1 - COVID-19; J12.82 - Pneumonia due to coronavirus disease 2019 Status: Acute Assessment and Plan: Patient had COVID in November 2021 (unverified). He is unvaccinated. Patient was tested for COVID here and was positive on 01/06/22. On imaging, some of these airspace opacities could be related to COVID. Discussed with Pulmonary. Remdesivir was started. Able to wean oxygen. Continue droplet isolation. (6) CKD (chronic kidney disease): Code(s): N18.9 - Chronic kidney disease, unspecified Status: Acute Assessment and Plan: Unclear on baseline creatinine value. In March 2021, creatinine ranged from 2.5-3.1. Creatinine in October was 1.8. Creatinine here was 2.0. CT scan did show cortical thinning of th
[2022-01-09] MEDS: ATORVASTATIN 40 MG TABLET PO (09:35)
[2022-01-09] MEDS: ENOXAPARIN 80 MG/0.8 ML SYRINGE 70 MG SUB-Q ×2 (09:35→19:46)
[2022-01-09] MEDS: PANTOPRAZOLE 40 MG TABLET PO (09:36)
[2022-01-09] MEDS: METOPROLOL SUCCINATE EXT REL 50 MG TABCR PO (09:36)
[2022-01-09] MEDS: AZELASTINE HCL NASAL 0.1% 137 MCG/SPR 30 ML BTL 1 SPRAY NASAL ×2 (09:37→19:48)
--- NOTE | 2022-01-09 09:37 | ECG_ITS ---
Measurements Intervals [place] Rate: 98 P: -9 MI: 118 QRS: 4 QRSD: 90 T: 30 QT: 329 QTc: 421 Interpretive Statements SINUS RHYTHM WITH SINUS ARRHYTHMIA WITH SHORT MI INTERVAL NONSPECIFIC T-WAVE ABNORMALITY BASELINE WANDERING ARTIFACT BORDERLINE ECG COMPARED TO ECG 01/06/2022 10:06:43 HEART RATE HAS IMPROVED PREMATURE ATRIAL CONTRACTIONS ARE NOT CLEARLY APPRECIATED Electronically Signed On 01-09-2022 14:37:21 [employer] by Saad Patel M.D.
[2022-01-09] MEDS: REMDESIVIR 100 MG/NS 250 ML 100 MG/250 ML BAG 250 MG IVPB (09:47)
[2022-01-09] MEDS: POTASSIUM CHLORIDE 20 MEQ TABLET 40 MEQ PO (11:33)
[2022-01-09 15:40] LABS: Total Protein Pleural Fluid <3.0 g/dL
[2022-01-09 16:02] LABS: Vancomycin Trough 5.6 ug/mL (10.0-20.0)
[2022-01-09] MEDS: ALBUTEROL SULFATE (*SP) AEROSOL 1 PUFF 2 PUFF INHALATION (16:18)
[2022-01-09] MEDS: ONDANSETRON INJ 4 MG/2 ML VIAL IV PUSH (16:18)
[2022-01-09] MEDS: HYDROcodone/acetaminophen (*CRX) 5-325 MG TABLET 1 TAB PO (19:46)
[2022-01-10] VITALS (16 sets, daily range): BP systolic 104–135; BP diastolic 63–78; PULSE 68–110; RESP 16–22; TEMP 35.8–37.1; O2SAT 95–100
[2022-01-10 00:47] LABS: Amylase, Pleural Fluid <10 U/L
[2022-01-10] MEDS: metroNIDAZOLE 500 MG/ISO 100ML 500 MG/100 ML BAG 100 MG IVPB ×4 (03:10→20:22)
[2022-01-10] MEDS: ONDANSETRON INJ 4 MG/2 ML VIAL IV PUSH ×2 (03:10→15:26)
[2022-01-10 04:31] LABS: Basophils Absolute Auto 0.1 K/mm3 (0.0-0.1); Basophils Percent Auto 0.5 % (0.2-1.2); Eosinophils Absolute Auto 0.3 K/mm3 (0-0.3); Eosinophils Percent Auto 1.6 % (0-4.4); Hematocrit 24.5 % (42.0-52.0); Hemoglobin 7.4 g/dL (14.0-18.0); Immature Granulocyte Absolute 0.17 K/mm3 (0.00-0.031); Lymphocytes Percent Auto 9.6 % (18.3-44.2); Mean Corpuscular HGB Conc 30.2 g/dl (32-36); Mean Corpuscular Hemoglobin 27.2 pg (26-34); Mean Corpuscular Volume 90.1 fl (80-100); Mean Platelet Volume 9.1 fl (7.4-10.4); Monocytes Absolute Auto 1.2 K/mm3 (0.1-0.6); Monocytes Percent Auto 7.3 % (2.6-8.5); Neutrophils Absolute Auto 13.4 K/mm3 (1.3-6.7); Nucleated Red Blood Cells Perc 0.2 % (0.0-0.2); Platelet Count Result 517 k/mm3 (150-375); Red Blood Count 2.72 M/mm3 (4.6-6.20); Red Cell Distribution Width 16.6 % (11.5-14.5); White Blood Count 16.8 K/mm3 (4.5-10.0)
[2022-01-10 04:39] LABS: INR 1.5; Prothrombin Time 17.3 Seconds (11.1-14.7)
[2022-01-10 04:52] LABS: Alanine Aminotransferase 24 U/L (4-50); Anion Gap 8 mmol/L (8-16); Blood Urea Nitrogen 15 mg/dL (9-20); Calcium 7.7 mg/dL (8.4-10.2); Carbon Dioxide 19 mmol/L (22-30); Chloride 108 mmol/L (98-107); Estimated CRCL calculation 41 ml/min; Estimated Glomerular Filt Rate 49; Glucose 103 mg/dL (65-110); Potassium 3.2 mmol/L (3.4-5.0); Sodium 135 mmol/L (137-145)
[2022-01-10] MEDS: POTASSIUM CHLORIDE 20 MEQ TABLET 40 MEQ PO (08:01)
[2022-01-10] MEDS: METOPROLOL SUCCINATE EXT REL 25 MG TABCR 75 MG PO (08:01)
[2022-01-10] MEDS: ENOXAPARIN 80 MG/0.8 ML SYRINGE 70 MG SUB-Q ×2 (08:03→20:21)
[2022-01-10] MEDS: PANTOPRAZOLE 40 MG TABLET PO (08:03)
[2022-01-10] MEDS: ATORVASTATIN 40 MG TABLET PO (08:03)
[2022-01-10] MEDS: AZELASTINE HCL NASAL 0.1% 137 MCG/SPR 30 ML BTL 1 SPRAY NASAL (08:08)
--- NOTE | 2022-01-10 08:11 | PM.IMPN ---
Progress Note: A&P Assessment and Plan (1) Acute hypoxemic respiratory failure: Code(s): J96.01 - Acute respiratory failure with hypoxia Status: Acute Assessment and Plan: Patient was hypoxic on admission. Hypoxia related to the pneumonia with empyema. ABG showing 7.43/19/114 on 2 L. Was up to 4 L but able to be weaned to room air now. Resolved. (2) Sepsis: Code(s): A41.9 - Sepsis, unspecified organism Status: Acute Assessment and Plan: Sepsis present on admission with lactic acidosis, leukocytosis (43K), tachycardia and hypoxia. Related to the empyema and bacterial pneumonia. Complicated by COVID pneumonia. Tachycardia improved overall but still intermittently persistent. EKG showing sinus tach with short SD and PAC. BP soft so Norvasc and Cozaar stopped. Metoprolol continued and later advanced for intermittent tachycardia. TSH normal. Doubt PE and already on treatment dose of Lovenox. Tachycardia felt related to the soft BP and from sepsis. Echo showing EF 65-70% with Grade I diastolic dysfunction. White count trending down to17K today. Lactic acid level has normalized as well. Continue IV antibiotics. Continue to monitor. (3) Empyema: Code(s): J86.9 - Pyothorax without fistula Status: Acute Assessment and Plan: Patient initially found to have a left basilar nodule by CT on October 25, 2021. Repeat CT scan of the chest ordered 12/31/21 which showed left lower lobe pneumonia with possible parenchymal abscess in continuity with moderate size loculated left pleural effusion with patchy airspace opacity in the right lung. Patient contacted his physician but did not get a call back. He ultimately presented to the emergency room here on 01/06/[address] scan now showing airspace opacities in the right lower lobe, lingula and left lower lobe as well as a moderate-sized left pleural effusion with pleural thickening suspicious for empyema. He underwent thoracentesis which yielded 650 mL of opaque light green fluid. Pulmonary was consulted. WBC was 43K that has continued to improve. BCx NGTD. Pleural Gram stain showing gram positive cocci and gram positive bacilli but no fungal elements. Anaerobic pleural cx growing gram positive cocci in chains. Sputum growing yeast. HIV negative. Patient was on vancomycin and Zosyn but has CKD so changed to Vanco, Flagyl and Cefepime. Follow up on culture results. Patient has been accepted to [facility] and are still waiting a bed at this time. Spoke with [facility] and [facility] yesterday and still no bed available. Will call again today. (4) Pneumonia: Qualifiers: Laterality: bilateral Lung location: lower lobe of lung Pneumonia type: due to unspecified organism Qualified Code(s): J18.9 - Pneumonia, unspecified organism Code(s): J18.9 - Pneumonia, unspecified organism Status: Acute Assessment and Plan: As above. Imaging showing bilateral lower lobe as well as lingular airspace disease. The left lower lobe findings most likely bacterial but the other findings could be related to his COVID infection. Continue IV antibiotics. Remdesivir has been started as well. Hold on steroids at this time. Successfully weaned off oxygen (5) Pneumonia due to 2019 novel coronavirus: Code(s): U07.1 - COVID-19; J12.82 - Pneumonia due to coronavirus disease 2019 Status: Acute Assessment and Plan: Patient had COVID in November 2021 (unverified). He is unvaccinated. Patient was tested for COVID here and was positive on 01/06/22. On imaging, some of these airspace opacities could be related to COVID. Discussed with Pulmonary. Remdesivir was started. Able to wean oxygen. Continue droplet isolation. (6) CKD (chronic kidney disease): Code(s): N18.9 - Chronic kidney disease, unspecified Status: Acute Assessment and Plan: Unclear on baseline creatinine value. In March 2021, creatinine ranged from 2.5
[2022-01-10] MEDS: FLUTICASONE PROP 220 MCG (*SP) 12 GM INHALER 2 PUFF INHALATION ×2 (09:41→20:18)
[2022-01-10] MEDS: REMDESIVIR 100 MG/NS 250 ML 100 MG/250 ML BAG 250 MG IVPB (10:40)
[2022-01-10] MEDS: PROMETHAZINE HCL 25 MG TABLET PO ×2 (11:14→20:21)
[2022-01-10 14:54] LABS: Albumin Pleural Fluid <0.1 g/dL
[2022-01-10] MEDS: HYDROcodone/acetaminophen (*CRX) 5-325 MG TABLET 1 TAB PO (20:21)
[2022-01-10] MEDS: MELATONIN 5 MG TABLET PO (21:20)
[2022-01-11] VITALS (15 sets, daily range): BP systolic 101–111; BP diastolic 61–76; PULSE 82–105; RESP 14–22; TEMP 35.1–36.7; O2SAT 95–100
[2022-01-11] MEDS: metroNIDAZOLE 500 MG/ISO 100ML 500 MG/100 ML BAG 100 MG IVPB ×4 (03:10→20:31)
[2022-01-11 04:47] LABS: Hematocrit 24.7 % (42.0-52.0); Hemoglobin 7.4 g/dL (14.0-18.0); Mean Corpuscular Hemoglobin 26.7 pg (26-34); Mean Corpuscular Volume 89.2 fl (80-100); Mean Platelet Volume 8.9 fl (7.4-10.4); Platelet Count Result 551 k/mm3 (150-375); Red Blood Count 2.77 M/mm3 (4.6-6.20); Red Cell Distribution Width 16.5 % (11.5-14.5); White Blood Count 18.5 K/mm3 (4.5-10.0)
[2022-01-11 05:00] LABS: INR 1.5; Prothrombin Time 17.4 Seconds (11.1-14.7)
[2022-01-11 05:03] LABS: Alanine Aminotransferase 23 U/L (4-50); Anion Gap 8 mmol/L (8-16); Blood Urea Nitrogen 12 mg/dL (9-20); Calcium 7.8 mg/dL (8.4-10.2); Carbon Dioxide 19 mmol/L (22-30); Chloride 108 mmol/L (98-107); Estimated CRCL calculation 38 ml/min; Estimated Glomerular Filt Rate 46; Glucose 112 mg/dL (65-110); Magnesium 1.9 mg/dL (1.6-2.3); Potassium 3.5 mmol/L (3.4-5.0); Sodium 135 mmol/L (137-145)
[2022-01-11] MEDS: PROMETHAZINE HCL 25 MG TABLET PO ×2 (06:11→16:26)
--- NOTE | 2022-01-11 07:20 | PC.NURSE ---
[facility] transfer center called and no bed is available at this moment.
[2022-01-11] MEDS: FLUTICASONE PROP 220 MCG (*SP) 12 GM INHALER 2 PUFF INHALATION ×2 (08:48→21:43)
--- NOTE | 2022-01-11 08:56 | PM.IMPN ---
Progress Note: A&P Assessment and Plan (1) Nausea and vomiting: Code(s): R11.2 - Nausea with vomiting, unspecified Status: Acute Assessment and Plan: Patient bothered by morning nausea with emesis that is mostly dry heaves. This does not seem to bother him throughout the rest of the day however. Will continue Zofran and Phenergan p.r.n.. Will add Flonase see this will improve his postnasal drainage which in turn may improve his morning nausea. Consider also related to Flagyl although would expected to occur throughout the day. Continue PPI. (2) Acute hypoxemic respiratory failure: Code(s): J96.01 - Acute respiratory failure with hypoxia Status: Acute Assessment and Plan: Patient was hypoxic on admission. Hypoxia related to the pneumonia with empyema. ABG showing 7.43/19/114 on 2 L. Was up to 4 L but able to be weaned to room air now. Resolved. (3) Sepsis: Code(s): A41.9 - Sepsis, unspecified organism Status: Acute Assessment and Plan: Sepsis present on admission with lactic acidosis, leukocytosis (43K), tachycardia and hypoxia. Related to the empyema and bacterial pneumonia. Complicated by COVID pneumonia. Tachycardia improved overall but still intermittently persistent as ATach. EKG showing sinus tach with short MT and PAC. BP soft so Norvasc and Cozaar stopped. Metoprolol continued and later advanced for intermittent tachycardia with improvement. TSH normal. Doubt PE and already on treatment dose of Lovenox. Echo showing EF 65-70% with Grade I diastolic dysfunction. White count up to 18.5K today. Lactic acid level has normalizedl. Continue IV antibiotics. Repeat CXR. Continue to monitor. (4) Empyema: Code(s): J86.9 - Pyothorax without fistula Status: Acute Assessment and Plan: Patient initially found to have a left basilar nodule by CT on October 25, 2021. Repeat CT scan of the chest ordered 12/31/21 which showed left lower lobe pneumonia with possible parenchymal abscess in continuity with moderate size loculated left pleural effusion with patchy airspace opacity in the right lung. Patient contacted his physician but did not get a call back. He ultimately presented to the emergency room here on 01/06/[address] scan now showing airspace opacities in the right lower lobe, lingula and left lower lobe as well as a moderate-sized left pleural effusion with pleural thickening suspicious for empyema. He underwent thoracentesis which yielded 650 mL of opaque light green fluid. Pulmonary was consulted. WBC was 43K that improved initially but now has climbed slightly. No fevers. BCx NGTD. Pleural cx growing Streptococcus intermedius. Sputum growing Candidia. HIV negative. Surprisingly, the pleural fluid looks more like transudative then exudative with Protein<3.0, LDH<10 and Albumin <0.1. Unlikely this is from esophageal leak given that it is transudative, LDH low and amylase is low. Patient was on vancomycin and Zosyn but has CKD so changed to Vanco, Flagyl and Cefepime. Still waiting for bed at tertiary care facility. (5) Pneumonia: Qualifiers: Laterality: bilateral Lung location: lower lobe of lung Pneumonia type: due to unspecified organism Qualified Code(s): J18.9 - Pneumonia, unspecified organism Code(s): J18.9 - Pneumonia, unspecified organism Status: Acute Assessment and Plan: As above. Imaging showing bilateral lower lobe as well as lingular airspace disease. The left lower lobe findings most likely bacterial but the other findings could be related to his COVID infection. Sputum growing Sharon but no thrush noted on exam. No fungal elements in the pleural fluid. Continue IV antibiotics. Successfully weaned off oxygen (6) Pneumonia due to 2019 novel coronavirus: Code(s): U07.1 - COVID-19; J12.82 - Pneumonia due to coronavirus disease 2019 Status: Acute Assessment and Plan: Patient had COVID in [place]
[2022-01-11] MEDS: ATORVASTATIN 40 MG TABLET PO (10:26)
[2022-01-11] MEDS: ENOXAPARIN 80 MG/0.8 ML SYRINGE 70 MG SUB-Q ×2 (10:26→20:34)
[2022-01-11] MEDS: METOPROLOL SUCCINATE EXT REL 25 MG TABCR 75 MG PO (10:27)
[2022-01-11] MEDS: PANTOPRAZOLE 40 MG TABLET PO (10:28)
[2022-01-11] MEDS: FLUTICASONE PROPIONATE 0.05% NA SPR 16 GM BTL (*BKC) 2 SPRAY NASAL (10:28)
[2022-01-11] MEDS: ONDANSETRON INJ 4 MG/2 ML VIAL IV PUSH (10:29)
[2022-01-11] MEDS: AZELASTINE HCL NASAL 0.1% 137 MCG/SPR 30 ML BTL 1 SPRAY NASAL ×2 (10:30→20:30)
[2022-01-11] MEDS: REMDESIVIR 100 MG/NS 250 ML 100 MG/250 ML BAG 250 MG IVPB (10:33)
--- NOTE | 2022-01-11 13:57 | PM.PNPUL ---
Progress Note: A&P Assessment and Plan (1) Empyema: Code(s): J86.9 - Pyothorax without fistula Status: Acute Assessment and Plan: 01/07 Patient with an evidence of an empyema dating back to CT scan of the chest on 12/31/2021. Thoracentesis on 01/06/2022 demonstrated opaque like green fluid with a positive Gram stain for Gram-positive cocci and Gram-positive bacilli. Patient should be evaluated by thoracic surgery for placement of a surgical chest tube and he has been excepted to [facility] for transfer. In addition to empyema patient had a CT scan of the abdomen and pelvis on 10/25/2021 with a left basilar nodule measuring 1 cm. He has a history of esophageal cancer and is a former smoker. Repeat CT scans have been unable to show this nodule given his empyema. At this time will continue vancomycin and Zosyn pending cultures. Patient is hemodynamically stable and clinically feels better. Patient's leukocytosis is improved. 01/08 Clinically he is improved. His white blood cell count has improved to 24.7. Cultures are negative. Continue vancomycin and Zosyn for now. Awaiting transfer for thoracic surgery evaluation for surgical chest tube. 01/11 Patient continues to breathe better. Minimal cough and phlegm. He does have some nausea. He is on room air with saturations 95%. His pleural fluid has grown out Streptococcus intermedius that is sensitive to ceftriaxone. Will discontinue vancomycin and cefepime and continue ceftriaxone and Flagyl. Today is day 5 of antibiotics. His pleural fluid studies have returned and he has a glucose of 235, total protein of less than 3 with a serum total protein of 7. The pleural LDH of less than 10 with a serum LDH of 351. I suspect these values may be inaccurate due to the purulence fluid that was sent to the laboratory. Chest x-ray today shows continued left lower lobe effusion and infiltrate unchanged from 01/07. his x-rays changed and his white blood cell count remains 18.5 and I still recommend transfer to thoracic surgery team for further evaluation Empyema and left lower lobe nodule from CT scan on 10/25/2021. Given nausea and history of esophageal cancer with gastric pull-through agree with barium swallow. (2) Pneumonia due to 2019 novel coronavirus: Code(s): U07.1 - COVID-19; J12.82 - Pneumonia due to coronavirus disease 2019 Status: Acute Assessment and Plan: 01/07 Patient has a history of COVID pneumonia in the middle of November 2021. He tells me he completely recovered. Currently the patient has tested RT PCR positive on 01/06/2022. The patient also has infiltrates in his right base and is requiring oxygen. At this time it is impossible to tell if this is an active COVID infection verses continued RT PCR positivity from his previous infection. Given the minimal toxicity seen with remdesivir I recommend 5 days of active treatment. I also think it would be prudent to start active treatment to minimize exposure if there is active viral infection and the patient requires thoracic surgery procedures such as VATS in the future. will follow for any progression of COVID. At this time given his current empyema I will not treat with dexamethasone. 01/08 Patient's oxygenation has improved. He is on 2 L nasal cannula oxygen now. He is on day 2 of remdesivir. I would continue for 5 days. 01/11 patient is now on room air with saturations 95%. He is receiving his 5th and last dose of Remdesivir today. (3) Asthma: Code(s): J45.909 - Unspecified asthma, uncomplicated Status: Chronic Assessment and Plan: 01/07/ Patient has a history of lifelong asthma and has had no exacerbations in the last year. Last admitted in the . Dust and dirt exacerbate his asthma. He has no wheezing now. I will continue Flovent 220 at 2 puffs twice a day while he is in the hospital. He is currently using albuterol 1 to 2 gorge
[2022-01-11] MEDS: MELATONIN 5 MG TABLET PO (20:31)
[2022-01-11] MEDS: cefTRIAXone 2 GM in SODIUM CHLORIDE 0.9% IV 100 ML 200 ML IVPB (20:31)
[2022-01-11] MEDS: HYDROcodone/acetaminophen (*CRX) 5-325 MG TABLET 1 TAB PO (20:33)
[2022-01-12] VITALS (21 sets, daily range): BP systolic 100–134; BP diastolic 65–79; PULSE 82–99; RESP 14–22; TEMP 35.6–36.9; O2SAT 96–100
[2022-01-12] MEDS: metroNIDAZOLE 500 MG/ISO 100ML 500 MG/100 ML BAG 100 MG IVPB ×4 (03:53→20:03)
[2022-01-12 05:14] LABS: Basophils Absolute Auto 0.1 K/mm3 (0.0-0.1); Basophils Percent Auto 0.4 % (0.2-1.2); Eosinophils Absolute Auto 0.2 K/mm3 (0-0.3); Eosinophils Percent Auto 1.3 % (0-4.4); Hematocrit 23.5 % (42.0-52.0); Immature Granulocyte Absolute 0.31 K/mm3 (0.00-0.031); Immature Granulocyte Percent A 1.9 % (0-0.5); Lymphocytes Absolute Auto 1.87 K/mm3 (0.9-3.2); Lymphocytes Percent Auto 11.3 % (18.3-44.2); Mean Corpuscular HGB Conc 29.8 g/dl (32-36); Mean Corpuscular Hemoglobin 27.5 pg (26-34); Mean Corpuscular Volume 92.2 fl (80-100); Monocytes Absolute Auto 1.3 K/mm3 (0.1-0.6); Neutrophils Absolute Auto 12.8 K/mm3 (1.3-6.7); Neutrophils Percent Auto 77.1 % (45.5-73.1); Nucleated Red Blood Cells Absolute Auto 0.1 K/mm3 (0.0-0.012); Nucleated Red Blood Cells Perc 0.4 % (0.0-0.2); Platelet Count Result 501 k/mm3 (150-375); Red Blood Count 2.55 M/mm3 (4.6-6.20); Red Cell Distribution Width 17.2 % (11.5-14.5); White Blood Count 16.6 K/mm3 (4.5-10.0)
[2022-01-12 05:31] LABS: Alanine Aminotransferase 21 U/L (4-50); Albumin Level 2.5 g/dL (3.5-5.1); Alkaline Phosphatase 187 U/L (38-126); Anion Gap 5 mmol/L (8-16); Aspartate Amino Transferase 38 U/L (17-59); Bilirubin,Total 0.3 mg/dL (0.2-1.3); Blood Urea Nitrogen 11 mg/dL (9-20); Calcium 7.6 mg/dL (8.4-10.2); Carbon Dioxide 23 mmol/L (22-30); Chloride 106 mmol/L (98-107); Estimated CRCL calculation 38 ml/min; Estimated Glomerular Filt Rate 46; Glucose 109 mg/dL (65-110); Magnesium 1.9 mg/dL (1.6-2.3); Phosphorus 3.4 mg/dL (2.5-4.5); Potassium 3.5 mmol/L (3.4-5.0); Sodium 134 mmol/L (137-145)
[2022-01-12] MEDS: AZELASTINE HCL NASAL 0.1% 137 MCG/SPR 30 ML BTL 1 SPRAY NASAL ×2 (08:08→20:04)
[2022-01-12] MEDS: ENOXAPARIN 80 MG/0.8 ML SYRINGE 70 MG SUB-Q ×2 (08:08→20:03)
[2022-01-12] MEDS: ATORVASTATIN 40 MG TABLET PO (08:08)
[2022-01-12] MEDS: PROMETHAZINE HCL 25 MG TABLET PO ×3 (08:08→20:06)
[2022-01-12] MEDS: METOPROLOL SUCCINATE EXT REL 25 MG TABCR 75 MG PO (08:09)
[2022-01-12] MEDS: FLUTICASONE PROPIONATE 0.05% NA SPR 16 GM BTL (*BKC) 2 SPRAY NASAL (08:09)
[2022-01-12] MEDS: PANTOPRAZOLE 40 MG TABLET PO (08:10)
[2022-01-12] MEDS: FLUTICASONE PROP 220 MCG (*SP) 12 GM INHALER 2 PUFF INHALATION ×2 (08:36→20:15)
--- NOTE | 2022-01-12 10:39 | PM.PNPUL ---
Progress Note: A&P Assessment and Plan (1) Empyema: Code(s): J86.9 - Pyothorax without fistula Status: Acute Assessment and Plan: 01/07 Patient with an evidence of an empyema dating back to CT scan of the chest on 12/31/2021. Thoracentesis on 01/06/2022 demonstrated opaque like green fluid with a positive Gram stain for Gram-positive cocci and Gram-positive bacilli. Patient should be evaluated by thoracic surgery for placement of a surgical chest tube and he has been excepted to [facility] for transfer. In addition to empyema patient had a CT scan of the abdomen and pelvis on 10/25/2021 with a left basilar nodule measuring 1 cm. He has a history of esophageal cancer and is a former smoker. Repeat CT scans have been unable to show this nodule given his empyema. At this time will continue vancomycin and Zosyn pending cultures. Patient is hemodynamically stable and clinically feels better. Patient's leukocytosis is improved. 01/08 Clinically he is improved. His white blood cell count has improved to 24.7. Cultures are negative. Continue vancomycin and Zosyn for now. Awaiting transfer for thoracic surgery evaluation for surgical chest tube. 01/11 Patient continues to breathe better. Minimal cough and phlegm. He does have some nausea. He is on room air with saturations 95%. His pleural fluid has grown out Streptococcus intermedius that is sensitive to ceftriaxone. Will discontinue vancomycin and cefepime and continue ceftriaxone and Flagyl. Today is day 5 of antibiotics. His pleural fluid studies have returned and he has a glucose of 235, total protein of less than 3 with a serum total protein of 7. The pleural LDH of less than 10 with a serum LDH of 351. I suspect these values may be inaccurate due to the purulence fluid that was sent to the laboratory. Chest x-ray today shows continued left lower lobe effusion and infiltrate unchanged from 01/07. his x-rays changed and his white blood cell count remains 18.5 and I still recommend transfer to thoracic surgery team for further evaluation Empyema and left lower lobe nodule from CT scan on 10/25/2021. Given nausea and history of esophageal cancer with gastric pull-through agree with barium swallow. 01/12 patient continues to be stable from a respiratory viewpoint. Currently he is on ceftriaxone and Flagyl and has been on antibiotics he for 7 days now. White blood cell count is 16.6. He is now on room air with saturations 98%. Creatinine is 1.5. Patient had a barium swallow and there is no evidence of a leak but there is evidence of a stricture in his esophagus. Awaiting transfer to [facility] when a bed is available. (2) Pneumonia due to 2019 novel coronavirus: Code(s): U07.1 - COVID-19; J12.82 - Pneumonia due to coronavirus disease 2019 Status: Acute Assessment and Plan: 01/07 Patient has a history of COVID pneumonia in the middle of November 2021. He tells me he completely recovered. Currently the patient has tested RT PCR positive on 01/06/2022. The patient also has infiltrates in his right base and is requiring oxygen. At this time it is impossible to tell if this is an active COVID infection verses continued RT PCR positivity from his previous infection. Given the minimal toxicity seen with remdesivir I recommend 5 days of active treatment. I also think it would be prudent to start active treatment to minimize exposure if there is active viral infection and the patient requires thoracic surgery procedures such as VATS in the future. will follow for any progression of COVID. At this time given his current empyema I will not treat with dexamethasone. 01/08 Patient's oxygenation has improved. He is on 2 L nasal cannula oxygen now. He is on day 2 of remdesivir. I would continue for 5 days. 01/11 patient is now on room air with saturations 95%. He is receiving his 5th and last dose of
--- NOTE | 2022-01-12 12:26 | PM.IMPN ---
Progress Note: A&P Assessment and Plan (1) Nausea and vomiting: Code(s): R11.2 - Nausea with vomiting, unspecified Status: Acute Assessment and Plan: Patient bothered by morning nausea with emesis that is mostly dry heaves. Flonase added for possible Post-nasal drainage. Will continue Zofran and Phenergan p.r.n.. Related to the acid reflux? Continue PPI. GI consulted. (2) Acute hypoxemic respiratory failure: Code(s): J96.01 - Acute respiratory failure with hypoxia Status: Acute Assessment and Plan: Patient was hypoxic on admission. Hypoxia related to the pneumonia with empyema. ABG showing 7.43/19/114 on 2 L. Was up to 4 L but able to be weaned to room air now. Resolved. (3) Sepsis: Code(s): A41.9 - Sepsis, unspecified organism Status: Acute Assessment and Plan: Sepsis present on admission with lactic acidosis, leukocytosis (43K), tachycardia and hypoxia. Related to the empyema and bacterial pneumonia. Complicated by COVID pneumonia. Tachycardia improved. BP soft so Norvasc and Cozaar stopped. Metoprolol continued and later advanced for intermittent tachycardia with improvement. TSH normal. Doubt PE and already on treatment dose of Lovenox. Echo showing EF 65-70% with Grade I diastolic dysfunction. White count down to 16K today. Lactic acid level has normalized. Continue IV antibiotics. Continue to monitor. (4) Empyema: Code(s): J86.9 - Pyothorax without fistula Status: Acute Assessment and Plan: Patient initially found to have a left basilar nodule by CT on October 25, 2021. Repeat CT scan of the chest ordered 12/31/21 which showed left lower lobe pneumonia with possible parenchymal abscess in continuity with moderate size loculated left pleural effusion with patchy airspace opacity in the right lung. Patient contacted his physician but did not get a call back. He ultimately presented to the emergency room here on 01/06/[address] scan now showing airspace opacities in the right lower lobe, lingula and left lower lobe as well as a moderate-sized left pleural effusion with pleural thickening suspicious for empyema. He underwent thoracentesis which yielded 650 mL of opaque light green fluid. Pulmonary was consulted. WBC was 43K that has improved. No fevers. BCx NGTD. Pleural cx growing Streptococcus intermedius. Sputum growing Candidia. HIV negative. Surprisingly, the pleural fluid looks more like transudative then exudative with Protein<3.0, LDH<10 and Albumin <0.1. Unlikely this is from esophageal leak given that it is transudative, LDH low and amylase is low. Patient was on vancomycin and Zosyn but has CKD so changed to Vanco, Flagyl and Cefepime. Changed to Rocephin and Flagyl 01/11 after discussing with pulmonary. Still waiting for bed at tertiary care facility. (5) Pneumonia: Qualifiers: Laterality: bilateral Lung location: lower lobe of lung Pneumonia type: due to unspecified organism Qualified Code(s): J18.9 - Pneumonia, unspecified organism Code(s): J18.9 - Pneumonia, unspecified organism Status: Acute Assessment and Plan: As above. Imaging showing bilateral lower lobe as well as lingular airspace disease. The left lower lobe findings most likely bacterial but the other findings could be related to his COVID infection. Sputum growing Sharon but no thrush noted on exam. No fungal elements in the pleural fluid. Discussed with pulmonary - no plans to treat the fungal findings on culture. Continue IV antibiotics for PNA and empyema. Successfully weaned off oxygen (6) Pneumonia due to 2019 novel coronavirus: Code(s): U07.1 - COVID-19; J12.82 - Pneumonia due to coronavirus disease 2019 Status: Acute Assessment and Plan: Patient had COVID in November 2021 (unverified). He is unvaccinated. Patient was tested for COVID here and was positive on 01/06/22. On imaging, some of these airspace opacities could b
--- NOTE | 2022-01-12 13:13 | WPDGICN ---
Assessment and Plan Assessment and plan (1) Dysphagia: Code(s): R13.10 - Dysphagia, unspecified Status: Acute Assessment and Plan: as noted above, his dysphagia has become much worse. Barium swallow reveals stricture the report reading: FINDINGS: There is a 2 cm segment of mid esophagus that has moderate to severe stricturing, lumen on this examination measuring about 7 mm in diameter. Water-soluble contrast did pass beyond this to the distal aspect of the esophagus where there are some filling defects, ingested food. There is a small gastric pouch. Contrast did empty into an unremarkable duodenal bulb, proximal aspect of duodenum. Gastroesophageal reflux was demonstrated. I discussed endoscopy with him and noted that there is indeed a risk of perforation or bleeding or other complication which could require surgery. He understands these risks but does wish to proceed because he is having a severe difficulty eating (2) Sepsis: Code(s): A41.9 - Sepsis, unspecified organism Status: Acute Assessment and Plan: he is currently on ceftriaxone and Flagyl. Barium swallow did not reveal a leak which was a concern given the fact that he has an empyema (3) Empyema: Code(s): J86.9 - Pyothorax without fistula Status: Acute Assessment and Plan: respiratory is following him. He is on antibiotics as noted above. The hope is to get him transfer to [facility] for placement of chest tube and further treatment by thoracic surgeon. 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 He underwent preoperative radiation and chemotherapy and subsequent resection as noted above. since then there has been no evidence of recurrence or metastases GI Consult Note Consult date/time: 01/12/22 13:13 HPI: Dhruv Santiago is a 76 year old male was admitted with shortness of breath about a week ago. He states this has all began in November. He was found have COVID in early November he got over that fairly well. He had a cough had resolved but then he was re-exposed would through his son. Subsequently he began having more symptoms. He had a CT scan of the chest a [facility]. He states that something was not well seen in he was sent for a 2nd 1. He took the disc with the results to his primary care physician's office and somehow it was overlooked. He did not get any results from them but after he was admitted here was determined that he had an empyema. dating back to CT scan of the chest on 12/31/2021. Thoracentesis on 01/06/2022 demonstrated opaque like green fluid with a positive Gram stain for Gram-positive cocci and Gram-positive bacilli. Patient should be evaluated by thoracic surgery for placement of a surgical chest tube and he has been excepted to [facility] for transfer. he has history of cancer that esophagus which was resected by Dr. Friedman about 10 years ago at [facility]. It Was complicated by a leak requiring a 2nd operation. Then the some months later he developed a ball like mass in the epigastric area that was determined to be a hernia. It sounds like some were around there he also had a G-tube placed and ultimately had 1 more operation, This time for the hernia. He states that he has had some difficulty swallowing ever since in fact his surgeon offered him a dilatation but because of the complications he had already had he declined. Now however is getting to the point that he can hardly eat anything except pureed consistencies for final each food ground beef. He has managed to keep his weight up low he has lost a few lb lately. Review of Systems Review of Systems: All systems reviewed & are unremarkable except as noted in HPI and below PMFSH Past Medical History Medical History (Reviewed 01/12/22 @ 13:33
[2022-01-12 13:34] LABS: Hematocrit 28.8 % (42.0-52.0); Hemoglobin 8.6 g/dL (14.0-18.0)
[2022-01-12] MEDS: MELATONIN 5 MG TABLET PO (20:04)
[2022-01-12] MEDS: cefTRIAXone 2 GM in SODIUM CHLORIDE 0.9% IV 100 ML 200 ML IVPB (20:07)
[2022-01-13] VITALS (24 sets, daily range): BP systolic 83–132; BP diastolic 56–88; PULSE 73–97; RESP 18–38; TEMP 35.6–36.7; O2SAT 95–100
[2022-01-13] MEDS: metroNIDAZOLE 500 MG/ISO 100ML 500 MG/100 ML BAG 100 MG IVPB ×4 (03:51→20:01)
[2022-01-13 05:07] LABS: Basophils Absolute Auto 0.1 K/mm3 (0.0-0.1); Basophils Percent Auto 0.4 % (0.2-1.2); Eosinophils Absolute Auto 0.2 K/mm3 (0-0.3); Eosinophils Percent Auto 1.1 % (0-4.4); Hematocrit 25.4 % (42.0-52.0); Hemoglobin 7.5 g/dL (14.0-18.0); Immature Granulocyte Absolute 0.26 K/mm3 (0.00-0.031); Immature Granulocyte Percent A 1.6 % (0-0.5); Lymphocytes Absolute Auto 1.81 K/mm3 (0.9-3.2); Lymphocytes Percent Auto 11.5 % (18.3-44.2); Mean Corpuscular HGB Conc 29.5 g/dl (32-36); Mean Corpuscular Hemoglobin 27.6 pg (26-34); Mean Corpuscular Volume 93.4 fl (80-100); Monocytes Absolute Auto 1.2 K/mm3 (0.1-0.6); Monocytes Percent Auto 7.9 % (2.6-8.5); Neutrophils Absolute Auto 12.2 K/mm3 (1.3-6.7); Neutrophils Percent Auto 77.5 % (45.5-73.1); Nucleated Red Blood Cells Perc 0.2 % (0.0-0.2); Platelet Count Result 523 k/mm3 (150-375); Red Blood Count 2.72 M/mm3 (4.6-6.20); Red Cell Distribution Width 18.3 % (11.5-14.5); White Blood Count 15.8 K/mm3 (4.5-10.0)
[2022-01-13 05:21] LABS: Anion Gap 5 mmol/L (8-16); Blood Urea Nitrogen 10 mg/dL (9-20); Calcium 7.6 mg/dL (8.4-10.2); Carbon Dioxide 23 mmol/L (22-30); Chloride 105 mmol/L (98-107); Estimated CRCL calculation 41 ml/min; Estimated Glomerular Filt Rate 49; Glucose 114 mg/dL (65-110); Potassium 3.4 mmol/L (3.4-5.0); Sodium 133 mmol/L (137-145)
[2022-01-13 05:49] LABS: Anisocytosis 2+ (NORMAL); Atypical Lymphocytes Present; Microcytosis 1+ (NORMAL); Tear Drop Cells 1+ (NORMAL)
[2022-01-13 08:21] LABS: Glucose Point of Care 116 mg/dl (65-105)
[2022-01-13] MEDS: POTASSIUM CHLORIDE 20 MEQ PACKET (FOR LIQUID) PO (08:33)
[2022-01-13] MEDS: METOPROLOL SUCCINATE EXT REL 25 MG TABCR 75 MG PO (08:33)
[2022-01-13] MEDS: FLUTICASONE PROPIONATE 0.05% NA SPR 16 GM BTL (*BKC) 2 SPRAY NASAL (08:34)
[2022-01-13] MEDS: PANTOPRAZOLE 40 MG TABLET PO (08:34)
[2022-01-13] MEDS: AZELASTINE HCL NASAL 0.1% 137 MCG/SPR 30 ML BTL 1 SPRAY NASAL ×2 (08:34→20:00)
[2022-01-13] MEDS: ATORVASTATIN 40 MG TABLET PO (08:34)
[2022-01-13] MEDS: FLUTICASONE PROP 220 MCG (*SP) 12 GM INHALER 2 PUFF INHALATION ×2 (09:05→20:52)
--- NOTE | 2022-01-13 09:17 | WPDANESEPPF ---
Anes - Initial Pre Proc Eval Procedure: Operation Date: 01/13/22 14:00 Proposed Procedures p Esophagogastroduodenoscopy - Viet Olsen MD Date/Time: 01/13/22 09:17 Surgeon: Clemencia Solares MD Pre Op Diagnosis: Empyema Patient Data Age: 76 Gender: M Height: 1.75 m Weight: 71.5 kg Last Vital Signs Temp 35.6 C L 01/13/22 08:00 Pulse 97 01/13/22 08:33 Resp 20 01/13/22 08:00 BP 120/77 01/13/22 08:00 Pulse Ox 99 01/13/22 09:07 Allergies Allergy/AdvReac Type Severity Reaction Status Date / Time adhesive Allergy Intermediate Rash Verified 01/13/22 13:03 Home Medications Medication Instructions Recorded Confirmed Type Flovent HFA 220 mcg INHALATION Q4H PRN 03/27/21 01/13/22 History amlodipine 5 mg tablet 5 mg PO DAILY 12/08/21 01/13/22 History apixaban 2.5 mg tablet 2.5 mg PO BID 12/08/21 01/13/22 History atorvastatin 40 mg tablet 40 mg PO DAILY 12/08/21 01/13/22 History azelastine 137 mcg (0.1 %) nasal 1 spray INTRANASAL Q12H #30 ml 12/08/21 01/13/22 Rx spray aerosol losartan 50 mg tablet 50 mg PO DAILY 12/08/21 01/13/22 History metoprolol succinate 50 mg 50 mg PO DAILY 12/08/21 01/13/22 History tablet,extended release 24 hr Laboratory Tests 01/12/22 01/13/22 01/13/22 13:28 04:40 04:40 WBC 15.8 K/mm3 H K/mm3 (4.5-10.0) RBC 2.72 M/mm3 L M/mm3 (4.6-6.20) Hgb 8.6 g/dL L g/dL 7.5 g/dL L g/dL (14.0-18.0) (14.0-18.0) Hct 28.8 % L % 25.4 % L % (42.0-52.0) (42.0-52.0) MCV 93.4 fl fl (80-100) MCH 27.6 pg pg (26-34) MCHC 29.5 g/dl L g/dl (32-36) RDW 18.3 % H % (11.5-14.5) Plt Count 523 k/mm3 H k/mm3 (150-375) MPV 9.0 fl fl (7.4-10.4) Immature Gran % (Auto) 1.6 % H % (0-0.5) Neut % (Auto) 77.5 % H % (45.5-73.1) Lymph % (Auto) 11.5 % L % (18.3-44.2) [place] % (Auto) 7.9 % % (2.6-8.5) Eos % (Auto) 1.1 % % (0-4.4) Baso % (Auto) 0.4 % % (0.2-1.2) Lymph # (Auto) 1.81 K/mm3 K/mm3 (0.9-3.2) [place] # (Auto) 1.2 K/mm3 H K/mm3 (0.1-0.6) Eos # (Auto) 0.2 K/mm3 K/mm3 (0-0.3) Baso # (Auto) 0.1 K/mm3 K/mm3 (0.0-0.1) Abs Immat Gran (auto) 0.26 K/mm3 H K/mm3 (0.00-0.031) Absolute Neuts (auto) 12.2 K/mm3 H K/mm3 (1.3-6.7) Absolute Nucleated RBC 0.0 K/mm3 K/mm3 (0.0-0.012) Nucleated RBC % 0.2 % % (0.0-0.2) Atypical Lymphocytes Present Platelet Estimate Slightly increased (Adequate) Anisocytosis 2+ (NORMAL) Microcytosis 1+ (NORMAL) Tear Drop Cells 1+ (NORMAL) Sodium 133 mmol/L L mmol/L (137-145) Potassium 3.4 mmol/L mmol/L (3.4-5.0) Chloride 105 mmol/L mmol/L (98-107) Carbon Dioxide 23 mmol/L mmol/L (22-30) Anion Gap 5 mmol/L L mmol/L (8-16) BUN 10 mg/dL mg/dL (9-20) Creatinine 1.40 mg/dL H mg/dL (0.7-1.3) Estim Creat Clear Calc 41 ml/min ml/min Estimated GFR 49 L (59 - ) Glucose 114 mg/dL H mg/dL (65-110) POC Capillary Glucose Calcium 7.6 mg/dL L mg/dL (8.4-10.2) 01/13/22 07:52 WBC RBC Hgb Hct MCV MCH MCHC RDW Plt Count MPV Immature Gran % (Auto) Neut % (Auto) Lymph % (Auto) [place] % (Auto) Eos % (Auto) Baso % (Auto) Lymph # (Auto) [place] # (Auto) Eos # (Auto) Baso # (Auto) Abs Immat Gran (auto) Absolute Neuts (auto) Absolute Nucleated RBC Nucleated RBC % Atypical Lymphocytes Platelet Estimate Anisocytosis Microcytosis Tear Drop Cells Sodium Potassium Chloride Carbon Dioxide Anion Gap BUN C
--- NOTE | 2022-01-13 09:28 | PM.IMPN ---
Progress Note: A&P Assessment and Plan (1) Nausea and vomiting: Code(s): R11.2 - Nausea with vomiting, unspecified Status: Acute Assessment and Plan: Patient bothered by morning nausea with emesis that is mostly dry heaves. Having Post-nasal drainage symptoms so Flonase added. UGI showing no extravasation but does show stricture and reflux. Reflux causing some of his symptoms? Will continue Zofran and Phenergan p.r.n.. Continue PPI. GI consulted and appreciate their input. (2) History of esophageal cancer: Code(s): Z85.01 - Personal history of malignant neoplasm of esophagus Status: Inactive Assessment and Plan: Patient has a history of esophageal cancer. He has undergone chemotherapy and radiation as well as resection. CT scan does show changes of esophagectomy and gastric pull-through procedure. UGI showing 2 cm segment of moderate to severe mid esophageal stricturing and a small gastric pouch with reflux demonstrated. GI consulted with plans for EGD later today. Continue Protonix. (3) Sepsis: Code(s): A41.9 - Sepsis, unspecified organism Status: Acute Assessment and Plan: Sepsis present on admission with lactic acidosis, leukocytosis (43K), tachycardia and hypoxia. Related to the empyema and bacterial pneumonia. Complicated by COVID pneumonia. Tachycardia improved. BP soft so Norvasc and Cozaar stopped. Metoprolol continued and later advanced for intermittent tachycardia with improvement. TSH normal. Doubt PE and already on treatment dose of Lovenox. Echo showing EF 65-70% with Grade I diastolic dysfunction. White count stable at 16K today. Lactic acid level has normalized. Continue IV antibiotics. Continue to monitor. (4) Empyema: Code(s): J86.9 - Pyothorax without fistula Status: Acute Assessment and Plan: Patient initially found to have a left basilar nodule by CT on October 25, 2021. Repeat CT scan of the chest ordered 12/31/21 which showed left lower lobe pneumonia with possible parenchymal abscess in continuity with moderate size loculated left pleural effusion with patchy airspace opacity in the right lung. Patient contacted his physician but did not get a call back. He ultimately presented to the emergency room here on 01/06/[address] scan now showing airspace opacities in the right lower lobe, lingula and left lower lobe as well as a moderate-sized left pleural effusion with pleural thickening suspicious for empyema. He underwent thoracentesis which yielded 650 mL of opaque light green fluid. Pulmonary was consulted. WBC was 43K that has improved. No fevers. BCx NGTD. Pleural cx growing Streptococcus intermedius. Sputum growing Candidia. HIV negative. Surprisingly, the pleural fluid looks more like transudative then exudative with Protein<3.0, LDH<10 and Albumin <0.1. Unlikely this is from esophageal leak given that it is transudative, LDH low and amylase is low. Patient was on vancomycin (1630 on 01/06) and Zosyn (1930 01/06) but has CKD so changed to Vanco, Flagyl and Cefepime. Abx narrowed to Rocephin and Flagyl 01/11 after culture results known and discussion with pulmonary. Still waiting for bed at tertiary care facility. (5) Pneumonia: Qualifiers: Laterality: bilateral Lung location: lower lobe of lung Pneumonia type: due to unspecified organism Qualified Code(s): J18.9 - Pneumonia, unspecified organism Code(s): J18.9 - Pneumonia, unspecified organism Status: Acute Assessment and Plan: As above. Imaging showing bilateral lower lobe as well as lingular airspace disease. The left lower lobe findings most likely bacterial but the other findings could be related to his COVID infection. Sputum growing Sharon but no thrush noted on exam. No fungal elements in the pleural fluid. Discussed with pulmonary - no plans to treat the fungal findings on culture. Continue IV antibiotics for PNA and empyema. Successfully weaned off o
--- NOTE | 2022-01-13 12:45 | PC.NURSE ---
To GI Lab per [nimoer. Report given to [COLE Valverde ].
[2022-01-13] MEDS: LACTATED RINGERS 1,000 ML 150 ML IV CONT (13:10)
--- NOTE | 2022-01-13 14:25 | PC.NURSE ---
Returned from GI Lab. Report received from [COLE Fraser @ [phone] ].
--- NOTE | 2022-01-13 14:38 | PCNWS ---
Weekly nutritional screen. Patient is tolerating current diet with adequate intake. No weight loss reported. No nutritional needs at this time.
[2022-01-13] MEDS: MELATONIN 5 MG TABLET PO (20:00)
[2022-01-13] MEDS: cefTRIAXone 2 GM in SODIUM CHLORIDE 0.9% IV 100 ML 200 ML IVPB (20:01)
[2022-01-13] MEDS: ZOLPIDEM TARTRATE (*CRX) 2.5 MG TABLET PO (20:07)
[2022-01-14] VITALS (15 sets, daily range): BP systolic 107–154; BP diastolic 65–88; PULSE 88–108; RESP 18; TEMP 35.8–36.6; O2SAT 96–100
[2022-01-14] MEDS: metroNIDAZOLE 500 MG/ISO 100ML 500 MG/100 ML BAG 100 MG IVPB ×4 (03:47→20:22)
[2022-01-14 04:41] LABS: Alanine Aminotransferase 18 U/L (4-50); Albumin Level 2.5 g/dL (3.5-5.1); Alkaline Phosphatase 169 U/L (38-126); Anion Gap 6 mmol/L (8-16); Aspartate Amino Transferase 29 U/L (17-59); Bilirubin,Total 0.2 mg/dL (0.2-1.3); Blood Urea Nitrogen 8 mg/dL (9-20); Calcium 7.5 mg/dL (8.4-10.2); Carbon Dioxide 24 mmol/L (22-30); Chloride 105 mmol/L (98-107); Estimated CRCL calculation 44 ml/min; Estimated Glomerular Filt Rate 54; Glucose 106 mg/dL (65-110); Magnesium 1.8 mg/dL (1.6-2.3); Potassium 3.7 mmol/L (3.4-5.0); Sodium 135 mmol/L (137-145)
[2022-01-14] MEDS: METOPROLOL SUCCINATE EXT REL 25 MG TABCR 75 MG PO ×2 (08:17→20:20)
[2022-01-14] MEDS: ATORVASTATIN 40 MG TABLET PO (08:17)
[2022-01-14] MEDS: AZELASTINE HCL NASAL 0.1% 137 MCG/SPR 30 ML BTL 1 SPRAY NASAL ×2 (08:17→21:39)
[2022-01-14] MEDS: PANTOPRAZOLE 40 MG TABLET PO (08:17)
[2022-01-14] MEDS: FLUTICASONE PROPIONATE 0.05% NA SPR 16 GM BTL (*BKC) 2 SPRAY NASAL ×2 (08:18→21:39)
[2022-01-14] MEDS: FLUTICASONE PROP 220 MCG (*SP) 12 GM INHALER 2 PUFF INHALATION ×2 (08:48→20:38)
[2022-01-14] MEDS: ENOXAPARIN 80 MG/0.8 ML SYRINGE 70 MG SUB-Q ×2 (09:44→21:40)
--- NOTE | 2022-01-14 10:15 | PM.IMPN ---
Progress Note: A&P Assessment and Plan (1) Nausea and vomiting: Code(s): R11.2 - Nausea with vomiting, unspecified Status: Acute Assessment and Plan: Patient was bothered by morning nausea with emesis that was mostly dry heaves. Having Post-nasal drainage symptoms so Flonase added. UGI showing no extravasation but does show stricture and reflux. EGD showing grade 3 reflux esophagitis. Symptoms better after EGD and dilation of the stricture. Continue Zofran and Phenergan p.r.n.. Continue PPI. GI following and appreciate their input. (2) History of esophageal cancer: Code(s): Z85.01 - Personal history of malignant neoplasm of esophagus Status: Inactive Assessment and Plan: Patient has a history of esophageal cancer. He has undergone chemotherapy and radiation as well as resection. CT scan does show changes of esophagectomy and gastric pull-through procedure. UGI showing 2 cm segment of moderate to severe mid esophageal stricturing and a small gastric pouch with reflux demonstrated. GI consulted and EGD performed 01/13/2022. EGD shows grade 3 reflux esophagitis and biopsies were taken, severe benign appearing stenosis in the mid esophagus that was dilated as well as previous esophageal surgery as detailed in the report. Patient eating better. Nausea and vomiting has resolved. Continue Protonix. (3) Sepsis: Code(s): A41.9 - Sepsis, unspecified organism Status: Acute Assessment and Plan: Sepsis present on admission with lactic acidosis, leukocytosis (43K), tachycardia and hypoxia. Related to the empyema and bacterial pneumonia. Complicated by COVID pneumonia. Tachycardia improved. BP soft so Norvasc and Cozaar stopped. Metoprolol continued and later advanced for intermittent tachycardia with improvement. TSH normal. Doubt PE and already on treatment dose of Lovenox. Echo showing EF 65-70% with Grade I diastolic dysfunction. White count stable at 16K yesterday. Lactic acid level has normalized. Continue IV antibiotics. Continue to monitor. (4) Empyema: Code(s): J86.9 - Pyothorax without fistula Status: Acute Assessment and Plan: Patient initially found to have a left basilar nodule by CT on October 25, 2021. Repeat CT scan of the chest ordered 12/31/21 which showed left lower lobe pneumonia with possible parenchymal abscess in continuity with moderate size loculated left pleural effusion with patchy airspace opacity in the right lung. Patient contacted his physician but did not get a call back. He ultimately presented to the emergency room here on 01/06/[address] scan now showing airspace opacities in the right lower lobe, lingula and left lower lobe as well as a moderate-sized left pleural effusion with pleural thickening suspicious for empyema. He underwent thoracentesis which yielded 650 mL of opaque light green fluid. Pulmonary was consulted. WBC was 43K that has improved. No fevers. BCx NGTD. Pleural cx growing Streptococcus intermedius. Sputum growing Sharon. HIV negative. Surprisingly, the pleural fluid looks more like transudative then exudative with Protein<3.0, LDH<10 and Albumin <0.1. Unlikely this is from esophageal leak and UGI ot showing any exravasation. Patient was on vancomycin (1630 on 01/06) and Zosyn (1930 01/06) but has CKD so changed to Vanco, Flagyl and Cefepime. Abx narrowed to Rocephin and Flagyl on 01/11 after culture results known and discussion with pulmonary. Still waiting for bed at tertiary care facility. (5) Pneumonia: Qualifiers: Laterality: bilateral Lung location: lower lobe of lung Pneumonia type: due to unspecified organism Qualified Code(s): J18.9 - Pneumonia, unspecified organism Code(s): J18.9 - Pneumonia, unspecified organism Status: Acute Assessment and Plan: As above. Imaging showing bilateral lower lobe as well as lingular airspace disease. The left lower lobe findings most likely bacterial but
--- NOTE | 2022-01-14 10:16 | WPDANESPN ---
Anes - Prog Note Post-Op Date/Time: 01/14/22 10:16 Cardiovascular status: normal Respiratory status: normal Airway patency: baseline Mental status: baseline Post-Op hydration status: normal Vital Signs: Last Vital Signs Temp 35.8 C L 01/14/22 08:08 Pulse 108 H 01/14/22 08:17 Resp 18 01/14/22 08:08 BP 121/79 01/14/22 08:08 Pulse Ox 98 01/14/22 08:08 Pain Score (VAS): 0 I/O: Intake & Output 01/13/22 01/14/22 01/14/22 23:59 07:59 15:59 Intake Total 1140 300 Output Total 300 400 Balance 840 -100 Laboratory Tests 01/13/22 04:40 01/14/22 04:12 01/14/22 04:12 Sodium 135 L Potassium 3.7 Chloride 105 Carbon Dioxide 24 Anion Gap 6 L BUN 8 L Creatinine 1.30 Estim Creat Clear Calc 44 Estimated GFR 54 L Glucose 106 Calcium 7.5 L Magnesium 1.8 Total Bilirubin 0.2 AST 29 ALT 18 Alkaline Phosphatase 169 H Total Protein 6.0 L Albumin 2.5 L Post-procedural complaints: none Patient Feedback: Patient satisfied with anesthetic care.
--- NOTE | 2022-01-14 10:31 | PC.NURSE ---
Patient is now medical status with telemetry, and no longer needing step-down unit for transfer; spoke with Lucy at [facility] transfer center regarding patient's change in status. Will continue to await bed based on availability.
--- NOTE | 2022-01-14 17:05 | PC.NURSE ---
This patient, Dhruv Santiago, was received from [facility] on 01/14/22 at 1705 . Patient/family oriented to unit policies and routines. Report received from Valentine GALVAN.
--- NOTE | 2022-01-14 17:20 | PC.NURSE ---
This patient, Dhruv Santiago, was transferred to [[id number] ] on 01/14/22 at 1705. Personal belongings sent with patient. Report given to [COLE Radford @ 0116. Transfer was delayed d/t room needing cleaned after bed was assigned. Appropriate documentation sent with patient.
[2022-01-14] MEDS: ZOLPIDEM TARTRATE (*CRX) 2.5 MG TABLET PO (20:20)
[2022-01-14] MEDS: cefTRIAXone 2 GM in SODIUM CHLORIDE 0.9% IV 100 ML 200 ML IVPB (21:32)
[2022-01-15] VITALS (11 sets, daily range): BP systolic 116–141; BP diastolic 86–90; PULSE 88–126; RESP 16–20; TEMP 36.4–36.8; O2SAT 97–100
[2022-01-15] MEDS: metroNIDAZOLE 500 MG/ISO 100ML 500 MG/100 ML BAG 100 MG IVPB ×4 (03:13→21:32)
[2022-01-15 06:15] LABS: Basophils Absolute Auto 0.1 K/mm3 (0.0-0.1); Basophils Percent Auto 0.4 % (0.2-1.2); Eosinophils Absolute Auto 0.2 K/mm3 (0-0.3); Eosinophils Percent Auto 1.2 % (0-4.4); Hematocrit 26.9 % (42.0-52.0); Hemoglobin 7.8 g/dL (14.0-18.0); Immature Granulocyte Percent A 0.8 % (0-0.5); Lymphocytes Absolute Auto 1.55 K/mm3 (0.9-3.2); Lymphocytes Percent Auto 11.7 % (18.3-44.2); Mean Corpuscular Hemoglobin 26.8 pg (26-34); Mean Corpuscular Volume 92.4 fl (80-100); Mean Platelet Volume 9.1 fl (7.4-10.4); Monocytes Absolute Auto 1.3 K/mm3 (0.1-0.6); Monocytes Percent Auto 9.4 % (2.6-8.5); Neutrophils Absolute Auto 10.1 K/mm3 (1.3-6.7); Neutrophils Percent Auto 76.5 % (45.5-73.1); Platelet Count Result 467 k/mm3 (150-375); Red Blood Count 2.91 M/mm3 (4.6-6.20); Red Cell Distribution Width 19.5 % (11.5-14.5); White Blood Count 13.2 K/mm3 (4.5-10.0)
[2022-01-15 06:23] LABS: Albumin Level 2.6 g/dL (3.5-5.1); Anion Gap 8 mmol/L (8-16); Blood Urea Nitrogen 8 mg/dL (9-20); Calcium 7.3 mg/dL (8.4-10.2); Carbon Dioxide 23 mmol/L (22-30); Chloride 103 mmol/L (98-107); Estimated CRCL calculation 44 ml/min; Estimated Glomerular Filt Rate 54; Glucose 106 mg/dL (65-110); Magnesium 1.8 mg/dL (1.6-2.3); Phosphorus 3.6 mg/dL (2.5-4.5); Potassium 3.8 mmol/L (3.4-5.0); Sodium 134 mmol/L (137-145)
[2022-01-15] MEDS: FLUTICASONE PROP 220 MCG (*SP) 12 GM INHALER 2 PUFF INHALATION ×2 (09:02→19:43)
[2022-01-15] MEDS: PANTOPRAZOLE 40 MG TABLET PO (10:27)
[2022-01-15] MEDS: ENOXAPARIN 80 MG/0.8 ML SYRINGE 70 MG SUB-Q ×2 (10:27→20:51)
[2022-01-15] MEDS: AZELASTINE HCL NASAL 0.1% 137 MCG/SPR 30 ML BTL 1 SPRAY NASAL ×2 (10:28→20:52)
[2022-01-15] MEDS: ATORVASTATIN 40 MG TABLET PO (10:29)
--- NOTE | 2022-01-15 14:22 | PM.IMPN ---
Progress Note: A&P Assessment and Plan (1) Empyema: Code(s): J86.9 - Pyothorax without fistula Status: Acute Assessment and Plan: Patient initially found to have a left basilar nodule by CT on October 25, 2021. Repeat CT scan of the chest ordered 12/31/21 which showed left lower lobe pneumonia with possible parenchymal abscess in continuity with moderate size loculated left pleural effusion with patchy airspace opacity in the right lung. Patient contacted his physician but did not get a call back. He ultimately presented to the emergency room here on 01/06/[address] scan now showing airspace opacities in the right lower lobe, lingula and left lower lobe as well as a moderate-sized left pleural effusion with pleural thickening suspicious for empyema. He underwent thoracentesis which yielded 650 mL of opaque light green fluid. Pulmonary was consulted. WBC was 43K that has improved. No fevers. BCx NGTD. Pleural cx growing Streptococcus intermedius. Sputum growing Sharon. HIV negative. Surprisingly, the pleural fluid looks more like transudative then exudative with Protein<3.0, LDH<10 and Albumin <0.1. Unlikely this is from esophageal leak and UGI not showing any extravasation. Patient was on vancomycin (1630 on 01/06) and Zosyn (1930 01/06) but has CKD so changed to Vanco, Flagyl and Cefepime. Abx narrowed to Rocephin and Flagyl on 01/11 after culture results known and discussion with pulmonary. Still waiting for bed at tertiary care facility. Patient over the past 2 days having increasing left flank pain. CXR 01/11 showing small effusion but CXR today now showing a left moderate effusion but improved airspace opacities of the left lung base. Suspect pain will continue to worsen until he gets definitive therapy. If unable to transfer soon, will consult Gen[facility]urg for chest tube. (2) Sepsis: Code(s): A41.9 - Sepsis, unspecified organism Status: Acute Assessment and Plan: Sepsis present on admission with lactic acidosis, leukocytosis (43K), tachycardia and hypoxia. Related to the empyema and bacterial pneumonia. Complicated by COVID pneumonia. Tachycardia improved but still with intermittent runs of Atrial tachycardia/MAT. BP soft so Norvasc and Cozaar stopped. Metoprolol continued and later advanced for intermittent tachycardia with improvement. TSH normal. Doubt PE and already on treatment dose of Lovenox. Echo showing EF 65-70% with Grade I diastolic dysfunction. White count better at 13K. Lactic acid level has normalized. Continue IV antibiotics. Advance metoprolol. Continue to monitor. (3) Pneumonia: Qualifiers: Laterality: bilateral Lung location: lower lobe of lung Pneumonia type: due to unspecified organism Qualified Code(s): J18.9 - Pneumonia, unspecified organism Code(s): J18.9 - Pneumonia, unspecified organism Status: Acute Assessment and Plan: As above. Imaging showing bilateral lower lobe as well as lingular airspace disease. The left lower lobe findings most likely bacterial but the other lung imaging findings could be related to his COVID infection. Sputum growing Sharon but no thrush noted on exam. No fungal elements in the pleural fluid. Discussed with pulmonary - no plans to treat the fungal findings on sputum culture. Continue IV antibiotics for PNA and empyema. Successfully weaned off oxygen. (4) Nausea and vomiting: Code(s): R11.2 - Nausea with vomiting, unspecified Status: Acute Assessment and Plan: Patient was bothered by morning nausea with emesis that was mostly dry heaves. Having Post-nasal drainage symptoms so Flonase added. UGI showing no extravasation of contrast but does show stricture and reflux. EGD showing grade 3 reflux esophagitis. Symptoms better after EGD and dilation of the stricture. Continue Zofran and Phenergan p.r.n.. Continue PPI. GI following and appreciate their input. Diet to be advanced per GI. (5) History of esophageal can
[2022-01-15] MEDS: METOPROLOL TARTRATE 50 MG TAB PO (20:51)
[2022-01-15] MEDS: cefTRIAXone 2 GM in SODIUM CHLORIDE 0.9% IV 100 ML 200 ML IVPB (20:52)
[2022-01-15] MEDS: HYDROcodone/acetaminophen (*CRX) 5-325 MG TABLET 1 TAB PO (21:01)
[2022-01-15] MEDS: ZOLPIDEM TARTRATE (*CRX) 2.5 MG TABLET PO (21:01)
[2022-01-16] VITALS (12 sets, daily range): BP systolic 124–128; BP diastolic 79–82; PULSE 81–138; RESP 14–20; TEMP 36.3–36.9; O2SAT 96–97
[2022-01-16] MEDS: metroNIDAZOLE 500 MG/ISO 100ML 500 MG/100 ML BAG 100 MG IVPB ×3 (04:07→15:42)
[2022-01-16 06:29] LABS: Hematocrit 30.6 % (42.0-52.0); Hemoglobin 8.9 g/dL (14.0-18.0); Mean Corpuscular HGB Conc 29.1 g/dl (32-36); Mean Corpuscular Hemoglobin 27.7 pg (26-34); Mean Corpuscular Volume 95.3 fl (80-100); Platelet Count Result 462 k/mm3 (150-375); Red Blood Count 3.21 M/mm3 (4.6-6.20); Red Cell Distribution Width 19.9 % (11.5-14.5); White Blood Count 10.9 K/mm3 (4.5-10.0)
[2022-01-16 06:39] LABS: Anion Gap 7 mmol/L (8-16); Blood Urea Nitrogen 8 mg/dL (9-20); Calcium 7.9 mg/dL (8.4-10.2); Carbon Dioxide 27 mmol/L (22-30); Chloride 101 mmol/L (98-107); Estimated CRCL calculation 41 ml/min; Estimated Glomerular Filt Rate 49; Glucose 102 mg/dL (65-110); Potassium 3.6 mmol/L (3.4-5.0); Sodium 135 mmol/L (137-145)
[2022-01-16] MEDS: ENOXAPARIN 80 MG/0.8 ML SYRINGE 70 MG SUB-Q ×2 (08:08→20:08)
[2022-01-16] MEDS: FLUTICASONE PROPIONATE 0.05% NA SPR 16 GM BTL (*BKC) 2 SPRAY NASAL (08:08)
[2022-01-16] MEDS: METOPROLOL TARTRATE 50 MG TAB PO ×2 (08:10→20:08)
[2022-01-16] MEDS: FLUTICASONE PROP 220 MCG (*SP) 12 GM INHALER 2 PUFF INHALATION ×2 (08:10→20:25)
[2022-01-16] MEDS: PROMETHAZINE HCL 25 MG TABLET PO (08:11)
[2022-01-16] MEDS: PANTOPRAZOLE 40 MG TABLET PO (08:11)
[2022-01-16] MEDS: AZELASTINE HCL NASAL 0.1% 137 MCG/SPR 30 ML BTL 1 SPRAY NASAL (08:11)
[2022-01-16] MEDS: ATORVASTATIN 40 MG TABLET PO (08:11)
--- NOTE | 2022-01-16 11:11 | PM.IMPN ---
Progress Note: A&P Assessment and Plan (1) Empyema: Code(s): J86.9 - Pyothorax without fistula Status: Acute Assessment and Plan: Patient initially found to have a left basilar nodule by CT on October 25, 2021. Repeat CT scan of the chest ordered 12/31/21 which showed left lower lobe pneumonia with possible parenchymal abscess in continuity with moderate size loculated left pleural effusion with patchy airspace opacity in the right lung. Patient contacted his physician but did not get a call back. He ultimately presented to the emergency room here on 01/06/[address] scan now showing airspace opacities in the right lower lobe, lingula and left lower lobe as well as a moderate-sized left pleural effusion with pleural thickening suspicious for empyema. He underwent thoracentesis which yielded 650 mL of opaque light green fluid. Pulmonary was consulted. WBC was 43K that has improved. No fevers. BCx NEGATIVE. Pleural cx growing Streptococcus intermedius. Sputum growing Sharon. HIV negative. Surprisingly, the pleural fluid looks more like transudative then exudative with Protein<3.0, LDH<10 and Albumin <0.1. Unlikely that this is from esophageal leak and UGI not showing any extravasation. Patient was on vancomycin (1630 on 01/06) and Zosyn (1930 01/06) but has CKD so changed to Vanco, Flagyl and Cefepime. Abx narrowed to Rocephin and Flagyl on 01/11 after culture results known and discussion with pulmonary. 01/15 CXR with moderate left pleural effusion. 01/16 Still waiting for bed at tertiary care facility. (2) Sepsis: Code(s): A41.9 - Sepsis, unspecified organism Status: Acute Assessment and Plan: Sepsis present on admission with lactic acidosis, leukocytosis (43K), tachycardia and hypoxia. Related to the empyema and bacterial pneumonia. Complicated by COVID pneumonia. Tachycardia improved but still with intermittent runs of Atrial tachycardia/MAT. BP soft so Norvasc and Cozaar stopped. Metoprolol continued and later advanced for intermittent tachycardia with improvement. TSH normal. Doubt PE and already on treatment dose of Lovenox. Echo showing EF 65-70% with Grade I diastolic dysfunction. 01/16 WBC 10.9 (3) Pneumonia: Qualifiers: Laterality: bilateral Lung location: lower lobe of lung Pneumonia type: due to unspecified organism Qualified Code(s): J18.9 - Pneumonia, unspecified organism Code(s): J18.9 - Pneumonia, unspecified organism Status: Acute Assessment and Plan: As above. Imaging showing bilateral lower lobe as well as lingular airspace disease. The left lower lobe findings most likely bacterial but the other lung imaging findings could be related to his COVID infection. Sputum growing Sharon but no thrush noted on exam. No fungal elements in the pleural fluid. This was discussed by hospitalist with pulmonary - no plans to treat the fungal findings on sputum culture. Continue IV antibiotics for PNA and empyema. Successfully weaned off oxygen. (4) Nausea and vomiting: Code(s): R11.2 - Nausea with vomiting, unspecified Status: Acute Assessment and Plan: Patient was bothered by morning nausea with emesis that was mostly dry heaves. Having Post-nasal drainage symptoms so Flonase added. UGI showing no extravasation of contrast but does show stricture and reflux. EGD showing grade 3 reflux esophagitis. Symptoms better after EGD and dilation of the stricture. Continue Zofran and Phenergan p.r.n.. Continue PPI. GI following and appreciate their input. Tolerating diet. (5) History of esophageal cancer: Code(s): Z85.01 - Personal history of malignant neoplasm of esophagus Status: Inactive Assessment and Plan: Patient has a history of esophageal cancer. He has undergone chemotherapy and radiation as well as resection. CT scan does show changes of esophagectomy and gastric pull-through procedure. UGI showing 2 cm segment of moderate to s
[2022-01-16] MEDS: METOPROLOL TARTRATE 25 MG TABLET PO (18:19)
[2022-01-16] MEDS: HYDROcodone/acetaminophen (*CRX) 5-325 MG TABLET 1 TAB PO (20:07)
[2022-01-16] MEDS: cefTRIAXone 2 GM in SODIUM CHLORIDE 0.9% IV 100 ML 200 ML IVPB (20:08)
[2022-01-16] MEDS: ZOLPIDEM TARTRATE (*CRX) 2.5 MG TABLET PO (20:08)
--- NOTE | 2022-01-27 17:11 | PM.TDS ---
Transfer Discharge Sum: Prov Provider Date of admission: 01/06/22 16:03 Primary care physician: Angelo Schulz, MD Admitting clinician: Clemencia Solares MD Consults: 01/06/22 16:04 Consult to Physician Routine Comment: Consulting Provider: Tam Nash Reason for consultation: Empyema Has provider been notified: Yes 01/11/22 15:46 Consult to Physician Routine Comment: Consulting Provider: Viet Olsen esthetician/MD group to consult: GI Reason for consultation: esophageal CA, stricture Has provider been notified: Yes Discharging clinician: Marvin Bravo Receiving physician/facility: [facility] DS: Admitting Diagnosis Discharge Date 01/16/22 Admitting Diagnosis pneumonia DS: Discharge Diagnosis Discharge Diagnosis (1) Empyema: Code(s): J86.9 - Pyothorax without fistula Status: Acute Assessment and Plan: Patient initially found to have a left basilar nodule by CT on October 25, 2021. Repeat CT scan of the chest ordered 12/31/21 which showed left lower lobe pneumonia with possible parenchymal abscess in continuity with moderate size loculated left pleural effusion with patchy airspace opacity in the right lung. Patient contacted his physician but did not get a call back. He ultimately presented to the emergency room here on 01/06/[address] scan now showing airspace opacities in the right lower lobe, lingula and left lower lobe as well as a moderate-sized left pleural effusion with pleural thickening suspicious for empyema. He underwent thoracentesis which yielded 650 mL of opaque light green fluid. Pulmonary was consulted. WBC was 43K that has improved. No fevers. BCx NEGATIVE. Pleural cx growing Streptococcus intermedius. Sputum growing Sharon. HIV negative. Surprisingly, the pleural fluid looks more like transudative then exudative with Protein<3.0, LDH<10 and Albumin <0.1. Unlikely that this is from esophageal leak and UGI not showing any extravasation. Patient was on vancomycin (1630 on 01/06) and Zosyn (1930 01/06) but has CKD so changed to Vanco, Flagyl and Cefepime. Abx narrowed to Rocephin and Flagyl on 01/11 after culture results known and discussion with pulmonary. 01/15 CXR with moderate left pleural effusion. 01/16 Still waiting for bed at tertiary care facility. (2) Sepsis: Code(s): A41.9 - Sepsis, unspecified organism Status: Acute Assessment and Plan: Sepsis present on admission with lactic acidosis, leukocytosis (43K), tachycardia and hypoxia. Related to the empyema and bacterial pneumonia. Complicated by COVID pneumonia. Tachycardia improved but still with intermittent runs of Atrial tachycardia/MAT. BP soft so Norvasc and Cozaar stopped. Metoprolol continued and later advanced for intermittent tachycardia with improvement. TSH normal. Doubt PE and already on treatment dose of Lovenox. Echo showing EF 65-70% with Grade I diastolic dysfunction. 01/16 WBC 10.9 (3) Pneumonia: Qualifiers: Laterality: bilateral Lung location: lower lobe of lung Pneumonia type: due to unspecified organism Qualified Code(s): J18.9 - Pneumonia, unspecified organism Code(s): J18.9 - Pneumonia, unspecified organism Status: Acute Assessment and Plan: As above. Imaging showing bilateral lower lobe as well as lingular airspace disease. The left lower lobe findings most likely bacterial but the other lung imaging findings could be related to his COVID infection. Sputum growing Sharon but no thrush noted on exam. No fungal elements in the pleural fluid. This was discussed by hospitalist with pulmonary - no plans to treat the fungal findings on sputum culture. Continue IV antibiotics for PNA and empyema. Successfully weaned off oxygen. (4) Nausea and vomiting: Code(s): R11.2 - Nausea with vomiting, unspecified Status: Acute Assessment and Plan: Patient was bothered by morning nausea with emesis
== END 2022-01-16 20:45 | disposition short-term general hospital (02) | DRG 871 ==
LOC: ANHED 10:49 → ANHIMU 17:23 → ANH3MEDSUR 01-15 22:36 → ANHIMU 01-18 10:37
PROVIDERS: Internal Medicine Gastroenterology; Internal Medicine Pulmonary Disease; Nurse Practitioner Adult Health; Physician Assistant; Admitting Provider Family Medicine; Emergency Provider Emergency Medicine; PCP Internal Medicine; Visit Provider Internal Medicine
PROC: 0DJ08ZZ Inspection of Upper Intestinal Tract, Via Natural or Artificial Opening Endoscopic (ICD-10-PCS; CPT 43235; principal; 2022-01-13 14:00)
DX: A41.9 Sepsis, unspecified organism (principal); J86.9 Pyothorax without fistula; U07.1 COVID-19; J12.82 Pneumonia due to coronavirus disease 2019; J96.01 Acute respiratory failure with hypoxia; J15.9 Unspecified bacterial pneumonia; N17.9 Acute kidney failure, unspecified; J90 Pleural effusion, not elsewhere classified; E87.2 Acidosis; B37.89 Other sites of candidiasis; D64.9 Anemia, unspecified; J45.909 Unspecified asthma, uncomplicated; Z86.711 Personal history of pulmonary embolism; Z92.21 Personal history of antineoplastic chemotherapy; Z92.3 Personal history of irradiation; Z85.01 Personal history of malignant neoplasm of esophagus; Z79.899 Other long term (current) drug therapy; Z79.51 Long term (current) use of inhaled steroids; R00.0 Tachycardia, unspecified; N18.9 Chronic kidney disease, unspecified; R91.1 Solitary pulmonary nodule; Z87.891 Personal history of nicotine dependence; R11.2 Nausea with vomiting, unspecified; R13.10 Dysphagia, unspecified; K21.00 Gastro-esophageal reflux disease with esophagitis, without bleeding; K22.2 Esophageal obstruction; B96.89 Other specified bacterial agents as the cause of diseases classified elsewhere
CPT/HCPCS: 32555; 36415; 36600; 71045; 71046; 71260; 74177; 74240; 80048; 80053; 80069; 80202; 82042; 82150; 82375; 82607; 82746; 82805; 82945; 82948; 83050; 83540; 83550; 83605; 83615; 83735; 83880; 83986; 84100; 84157; 84311; 84443; 84460; 84478; 85014; 85018; 85025; 85027; 85046; 85380; 85610; 85730; 86703; 87015; 87040; 87070; 87075; 87077; 87102; 87106; 87116; 87186; 87205; 87206; 88104; 88108; 88305; 89051; 93005; 93306; 93970; 94640; 96365; 96367; 96375; 99291; A9270; C1726; C9113; C9803; G0432; J0131; J0456; J0692; J0696; J1200; J1650; J2270; J2405; J2543; J2704; J2765; J3370; J7120; Q9967; U0003; U0005